=== PATIENT | female | born 1935 | race Caucasian/White ===

== ENCOUNTER 2017-01-02 20:10 | Emergency (ER) | payer MEDICARE ==
[2017-01-02] MEDS ORDERED: NS 0.9% 1000 ML* 1,000 ML IV ONE (20:47)
[2017-01-02 20:53] LABS: Hematocrit 38 % (35-47); Hemoglobin 12.4 g/dl (12.0-16.0); Mean Corpuscular HGB Conc 33 g/dl (31-36); Mean Corpuscular Hemoglobin 28 pg (27-31); Mean Corpuscular Volume 86 fL (80-97); Mean Platelet Volume 7 um3 (7.4-10.4); Red Blood Count 4.38 10^6/ul (4.0-5.4); Red Cell Distribution Width 15 % (10.5-15); White Blood Count 5.4 10^3/ul (3.5-10.8)
[2017-01-02 21:04] LABS: BUN/Creatinine Ratio 16.2 (8-20); Calcium 9.5 mg/dL (8.6-10.3); EGFR African American 97.1 (>60); EGFR Non-African American 75.5 (>60); Potassium 3.6 mmol/L (3.5-5.0)
--- NOTE | 2017-01-02 21:40 | RAD ---
Indication: Altered mental status. Weakness, dizziness, chills. History of seizure disorder. Comparison: August 04, 2014 CT. Technique: Noncontrast CT vertex of skull through foramen magnum. Report: Mild to moderate prominence of the cerebral sulci and mild prominence of the cerebellar fissures. Unremarkable ventricles and basal cisterns. 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 Negative for mulligan matter white matter obscuration, intra or extra-axial hemorrhage, or mass effect. Unremarkable orbital contents. Indolent thickening of the inner table of the frontal bone noted. No suspicious calvarial or skull base lesions evident. Clear visualized paranasal sinuses and mastoid air spaces. Unremarkable scalp. IMPRESSION: 1. No acute intracranial process evident. 2. Mild involutional change and stigmata of chronic small vessel ischemic disease.
[2017-01-02 22:51] LABS: Urine Bacteria 1+ (Absent); Urine Bilirubin Negative (Negative); Urine Glucose Negative (Negative); Urine Nitrite Positive (Negative)
[2017-01-02] MEDS ORDERED: Cephalexin CAP* 500 MG PO ONE (23:00)
--- NOTE | 2017-01-02 23:07 | ED ---
I, Oh,Therese, scribed for Wally Ha MD on 01/02/17 at 2101 . Dizziness - HPI Summary HPI Summary: This 81 y/o female presents to ED via private transport for intermittent dizziness today around 1800 PM. Pt reports that she experienced lightheaded dizziness when she woke up from her daily nap at 1800 PM and ambulated to get some water. Lightheadedness resolved by the time she got her water, but her son became concerned about the episode and urged her to visit ED. She reports that she consumed taco and sticky buns for dinner after her episode of dizziness. PMHx includes mitral valve prolapse, DVT, and vertebral fracture. - History Of Current Complaint Chief Complaint: EDWeakness Stated Complaint: AMS/WEAKNESS Time Seen by Provider: 01/02/17 20:35 Hx Obtained From: Patient, Medical Records Timing: Intermittent Episode Lasting - seconds Severity Initially: Mild Severity Currently: None Character: Lightheaded Aggravating Factor(s): Nothing Alleviating Factor(s): Other - Spontaneous resolution Associated Signs And Symptoms: Positive: Negative - Allergies/Home Medications Allergies/Adverse Reactions: Allergies Allergy/AdvReac Type Severity Reaction Status Date / Time Alendronate [From Fosamax] Allergy Severe Headache Verified 01/20/16 17:21 Iodinated Contrast Media Allergy Severe Hives Verified 01/20/16 17:21 [IV CONTRAST DYE] PMH/Surg Hx/FS Hx/Imm Hx Endocrine/Hematology History: Denies: Hx Anticoagulant Therapy, Hx Diabetes, Hx Thyroid Disease Cardiovascular History: Denies: Hx Hypertension, Hx Pacemaker/ICD Respiratory History: Denies: Hx Asthma, Hx Chronic Obstructive Pulmonary Disease (COPD) GI History: Denies: Hx Ulcer History: Denies: Hx Dialysis, Hx Renal Disease Musculoskeletal History: Reports: Hx Osteoporosis Sensory History: Reports: Hx Contacts or Glasses Denies: Hx Hearing Aid Opthamlomology History: Reports: Hx Contacts or Glasses Neurological History: Reports: Hx Seizures Psychiatric History: Denies: Hx Panic Disorder - Surgical History Surgery Procedure, Year, and Place: R knee replacement 05/25/2012; hysterectomy; blood clot L leg;. right shoulder repair w/ screw - Immunization History Date of Tetanus Vaccine: unknown Date of Influenza Vaccine: 2014 Infectious Disease History: No Infectious Disease History: Reports: Hx Shingles Denies: Hx Clostridium Difficile, Hx Hepatitis, Hx Human Immunodeficiency Virus (HIV), Hx of Known/Suspected MRSA, Hx Tuberculosis, Traveled Outside the [place] in Last 30 Days - Family History Known Family History: Positive: Cardiac Disease - Social History Alcohol Use: None Substance Use Type: Reports: None Smoking Status (MU): Former Smoker Type: Cigarettes Length of Time of Smoking/Using Tobacco: quit smoking at 17 years old Review of Systems Negative: Fever Neurological: Other - positive for intermittent lightheaded dizziness Negative: Anxious, Depressed All Other Systems Reviewed And Are Negative: Yes Physical Exam Triage Information Reviewed: Yes Vital Signs On Initial Exam: Initial Vitals Temp Pulse Resp BP Pulse Ox 98.5 F 86 20 151/68 98 01/02/17 20:16 01/02/17 20:16 01/02/17 20:16 01/02/17 20:16 01/02/17 20:16 Vital Signs Reviewed: Yes Appearance: Positive: Well-Appearing, No Pain Distress Skin: Positive: Warm, Dry Head/Face: Positive: Normal Head/Face Inspection Eyes: Positive: JORDAN ENT: Positive: Pharynx normal Neck: Positive: Supple, Nontender. Negative: Other: - carotid bruit Respiratory/Lung Sounds: Positive: Clear to Auscultation, Breath Sounds Present Cardiovascular: Positive: RRR, Pulses are Symmetrical in both Upper and Lower Extremities Abdomen Description: Positive: Nontender, Soft Musculoskeletal: Positive: Strength/ROM Intact Neurological: Positive: Sensory/Motor Intact, Alert, Oriented to Person Place, Time Psychiatric: Positive: Affect/Mood Appropriate AVPU Assessment: Alert - Marc Coma Scale Coma Scale Total: 15 Diagnostics - Vital Signs Vital Signs Temp Pulse Resp BP Pulse Ox 01/02/17 20:16 98.5 F 86 20 151/68 98 - Laboratory Lab Results: Lab Results 01/02/17 01/02/17 01/02/17 Range/Units 20:35 20:35 22:25 WBC 5.4 (3.5-10.8) 10^3/ul RBC 4.38 (4.0-5.4) 10^6/ul Hgb 12.4 (12.0-16.0) g/dl Hct 38 (35-47) % MCV 86 (80-97) fL MCH 28 (27-31) pg MCHC 33 (31-36) g/dl RDW 15 (10.5-15) % Plt Count 223 (150-450) 10^3/ul MPV 7 L (7.4-10.4) um3 Sodium 136 (133-145) mmol/L Potassium 3.6 (3.5-5.0) mmol/L Chloride 102 (101-111) mmol/L Carbon Dioxide 30 (22-32) mmol/L Anion Gap 4 (2-11) mmol/L BUN 12 (6-24) mg/dL Creatinine 0.74 (0.51-0.95) mg/dL Est GFR ( Amer) 97.1 (>60) Est GFR (Non-Af Amer) 75.5 (>60) BUN/Creatinine Ratio 16.2 (8-20) Glucose 103 H (70-100) mg/dL Calcium 9.5 (8.6-10.3) mg/dL Urine Color Yellow Urine Appearance Clear Urine pH 6.0 (5-9) Ur Specific [place] 1.005 L (1.010-1.030) Urine Protein Negative (Negative) Urine Ketones Negative (Negative) Urine Blood 1+ H (Negative) Urine Nitrate Positive H (Negative) Urine Bilirubin Negative (Negative) Urine Urobilinogen Negative (Negative) Ur Leukocyte Esterase 1+ H (Negative) Urine WBC (Auto) Absent (Absent) Urine RBC (Auto) Trace(0-2/hpf) (Absent) Ur Squamous Epith Cells Present H (Absent) Urine Bacteria 1+ H (Absent) Urine Glucose Negative (Negative) Result Diagrams: 01/02/17 20:35 01/02/17 20:35 Lab Statement: Any lab studies that have been ordered have been reviewed, and results considered in the medical decision making process. - CT Brain CT Interpretation: No Acute Changes - 1. No acute intracranial process evident. 2. Mild involutional change and stigmata of chronic small vessel ischemic disease. CT Interpretation Completed By: Radiologist Re-Evaluation - Re-Evaluation First Eval Re-Evaluation Time: 23:01 Change: Improved Comment: in room to update pt on bloodwork, UA, and imaging results. Plan of care involving discharge is discussed, and pt is agreeable. Dizzy Course/Dx - Diagnoses Differential Diagnosis/HQI/PQRI: Metabolic Abnormality, Myocardial Infarction, Other - UTI. Provider Diagnoses: Urinary tract infection Discharge - Discharge Plan Condition: Improved Disposition: HOME Prescriptions: Cephalexin CAP* [Keflex 500 CAP*] 500 mg PO BID #14 cap Patient Education Materials: Urinary Tract Infection in Women (ED) Referrals: Jean Gaxiola MD [Primary Care Provider] - 3 Days The documentation as recorded by the Ollie warner Soohyun accurately reflects the service I personally performed and the decisions made by , Wally Ha MD.
[2017-01-03 00:44] VITALS: BP 153/51
--- NOTE | 2017-01-06 07:21 | PN ---
Progress Note - Progress Note Note: Patient discharged on Keflex which is sensitive on cultures, therefore no further action needed.
== END 2017-01-03 00:44 | disposition home or self-care (01) ==
LOC: ED 20:10
DX: N39.0 Urinary tract infection, site not specified (principal); R42 Dizziness and giddiness
CPT/HCPCS: 36415; 70450; 80048; 81003; 81015; 85027; 87077; 87086; 87186; 96361; 99283; A9270-GY

== ENCOUNTER 2017-03-22 18:15 | Emergency (ER) | payer MEDICARE ==
--- NOTE | 2017-03-22 20:11 | RAD ---
INDICATION: Head injury. COMPARISON: Comparison is made with a prior CT of the brain from January 02, 2017. TECHNIQUE: Contiguous axial sections of the brain were obtained from the skull base to the vertex without contrast. FINDINGS: The ventricles, cisterns and sulci are enlarged consistent with diffuse atrophy. There are small areas of decreased density in the subcortical and periventricular white matter suggestive of mild chronic small vessel ischemic changes. There is no evidence for hemorrhage. No significant focal osseous abnormality is seen. The visualized portion of the paranasal sinuses and mastoid air cells appear clear. IMPRESSION: NO EVIDENCE FOR ACUTE INTRACRANIAL ABNORMALITY.
--- NOTE | 2017-03-22 20:14 | RAD ---
INDICATION: Left elbow injury. TECHNIQUE: 4 views of the left elbow were obtained. FINDINGS: The bones are osteopenic and in normal alignment. No joint effusion or fracture is seen. Joint spaces appear maintained. IMPRESSION: NO EVIDENCE FOR FRACTURE.
--- NOTE | 2017-03-22 20:16 | RAD ---
INDICATION: Trauma, back pain. COMPARISON: Comparison is made with a prior study from January 20, 2016. TECHNIQUE: 5 views of the lumbar spine were obtained including lateral, oblique, AP and a coned-down lateral view of the lumbar sacral junction. FINDINGS: There is a mild lumbar scoliosis convex toward the right side. The vertebra are otherwise in normal alignment. There is a mild compression fracture of the inferior endplate of the L4 vertebral body which is unchanged. No acute fracture is seen. There is mild diffuse degenerative disc disease. IMPRESSION: MILD COMPRESSION FRACTURE OF THE L4 VERTEBRAL BODY, UNCHANGED.
--- NOTE | 2017-03-22 20:18 | RAD ---
INDICATION: Left knee injury. TECHNIQUE: 4 views of the left knee were obtained. FINDINGS: The bones are osteopenic and in normal alignment. No joint effusion or fracture is seen. There is mild to moderate osteoarthritic change in the patellofemoral and lateral compartments. IMPRESSION: NO EVIDENCE FOR FRACTURE.
--- NOTE | 2017-03-22 21:04 | ED ---
Adult Trauma - HPI Summary HPI Summary: Patient is an 81yo F who arrives to ED after a fall. She states she hit her head on the grass as well as her side and knee. She was ambulatory at the scene and denies LOC. She states she is otherwise healthy. Denies memory loss , confusion, N/V. She has osteoporosis and is concerned for a fracture. Fall occurred approximately 2 hours ago, and she does not recall exactly how she landed. She admits to no pain immediately, but slowly began to feel some pain after several minutes and decided to come to the ED. 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 ?: No Mechanism of Injury: Fall Ambulatory at the Scene: Yes Loss of Consciousness: no loss of consciousness Force: Low Restraints: None Onset/Duration: Started Hours Ago Onset of Pain: Immediate Onset Severity: Mild Current Severity: Mild Pain Intensity: 4 Pain Scale Used: 0-10 Numeric Location: Head, Extremities Character: Dull Alleviating Factor(s): Nothing Associated Signs & Symptoms: Positive: Negative - Allergy/Home Medications Allergies/Adverse Reactions: Allergies Allergy/AdvReac Type Severity Reaction Status Date / Time Alendronate [From Fosamax] Allergy Severe Headache Verified 01/20/16 17:21 Iodinated Contrast Media Allergy Severe Hives Verified 01/20/16 17:21 [IV CONTRAST DYE] PMH/Surg Hx/FS Hx/Imm Hx Previously Healthy: Yes Endocrine/Hematology History: Denies: Hx Anticoagulant Therapy, Hx Diabetes, Hx Thyroid Disease Cardiovascular History: Denies: Hx Hypertension, Hx Pacemaker/ICD Respiratory History: Denies: Hx Asthma, Hx Chronic Obstructive Pulmonary Disease (COPD) GI History: Denies: Hx Ulcer History: Denies: Hx Dialysis, Hx Renal Disease Musculoskeletal History: Reports: Hx Osteoporosis Sensory History: Reports: Hx Contacts or Glasses Denies: Hx Hearing Aid Opthamlomology History: Reports: Hx Contacts or Glasses Neurological History: Reports: Hx Seizures Psychiatric History: Denies: Hx Panic Disorder - Surgical History Surgery Procedure, Year, and Place: R knee replacement 05/25/2012; hysterectomy; blood clot L leg;. right shoulder repair w/ screw - Immunization History Date of Tetanus Vaccine: unknown Date of Influenza Vaccine: 2015 Hx Pertussis Vaccination: No Immunizations Up to Date: No Infectious Disease History: Reports: Hx Shingles Denies: Hx Clostridium Difficile, Hx Hepatitis, Hx Human Immunodeficiency Virus (HIV), Hx of Known/Suspected MRSA, Hx Tuberculosis, Traveled Outside the [place] in Last 30 Days - Family History Known Family History: Positive: None, Cardiac Disease - Social History Occupation: Unemployed Lives: With Family Alcohol Use: None Hx Substance Use: No Substance Use Type: Reports: None Hx Tobacco Use: No Smoking Status (MU): Former Smoker Type: Cigarettes Length of Time of Smoking/Using Tobacco: quit smoking at 17 years old Review of Systems Constitutional: Negative Eyes: Negative Cardiovascular: Negative Respiratory: Negative Positive: no symptoms reported, see HPI Positive: Arthralgia - left knee, left elbow Psychological: Normal All Other Systems Reviewed And Are Negative: Yes Physical Exam Triage Information Reviewed: Yes Vital Signs On Initial Exam: Initial Vitals Temp Pulse Resp BP Pulse Ox 98.2 F 78 18 150/59 98 03/22/17 18:18 03/22/17 18:18 03/22/17 18:18 03/22/17 18:18 03/22/17 18:18 Vital Signs Reviewed: Yes Appearance: Positive: Well-Appearing, No Pain Distress, Well-Nourished Skin: Positive: Warm, Skin Color Reflects Adequate Perfusion Head/Face: Positive: Normal Head/Face Inspection Eyes: Positive: Normal Respiratory/Lung Sounds: Positive: Clear to Auscultation, Breath Sounds Present Cardiovascular: Positive: Normal, RRR, Pulses are Symmetrical in both Upper and Lower Extremities Musculoskeletal: Positive: Strength/ROM Intact, Pain @ - left elbow, left knee pain Neurological: Positive: Sensory/Motor Intact, Speech Normal Psychiatric: Positive: Normal Diagnostics - Vital Signs Vital Signs Temp Pulse Resp BP Pulse Ox 03/22/17 18:18 98.2 F 78 18 150/59 98 - Laboratory Lab Statement: Any lab studies that have been ordered have been reviewed, and results considered in the medical decision making process. Adult Trauma Course/Dx - Course Course Of Treatment: Patient was evaluated for trauma pain from a fall. Brain CT, lumbar spine, Left elbow, and left knee all OK for fracture. After given the results, patient mentions she has a slight pain in her right side over the rib area. Provider explained will need to complete a rib xray to determine if it is fractured. at that time she declined the rib xray as she knew it would not change the course of treatment. she prefers to take ibuprofen and icy hot for pain relief and will follow up with PCP. - Diagnoses Differential Diagnosis/HQI/PQRI: Positive: Contusion(s), Fracture, Hematoma(s), Sprain Provider Diagnoses: Fall Discharge - Discharge Plan Condition: Stable Disposition: HOME Patient Education Materials: Contusion in Adults (ED) Referrals: Jean Gaxiola MD [Primary Care Provider] - Additional Instructions: Follow up with your PCP. Icy hot, heating pads and ibuprofen 600mg three times daily as needed for discomfort Nothing found on xray. as discussed, cannot rule out rib fracture
[2017-03-22 21:41] VITALS: BP 164/61
== END 2017-03-22 21:40 | disposition home or self-care (01) ==
LOC: ED 18:15
DX: M25.562 Pain in left knee (principal); M25.522 Pain in left elbow; R07.81 Pleurodynia; Z87.891 Personal history of nicotine dependence; M81.0 Age-related osteoporosis without current pathological fracture; M48.56XA Collapsed vertebra, not elsewhere classified, lumbar region, initial encounter for fracture
CPT/HCPCS: 70450; 72110; 99282

== ENCOUNTER 2017-04-17 11:55 | Emergency (ER) | payer MEDICARE ==
[2017-04-17 12:32] VITALS: BP 150/63
--- NOTE | 2017-04-17 14:00 | UC ---
Skin Complaint HPI - HPI Summary HPI Summary: PATIENT IS AN OTHERWISE HEALTHY 81YO F WHO PRESENTS TO WITH CC OF TICK BITE TO THE INNER RIGHT CALF. SHE STATES THE TICK COULD HAVE BEEN ON FOR A MAX OF 24 HOURS SHE DID NOT SEE IT YESTERDAY. HER SON ATTEMPTED TO DISLODGE THE TICK AT HOME WITH TWEEZERS, BUT A SMALL BLACK PIECE HAS REMAINED. SHE DENIES MUSCLE ACHES, JOINT PAINS, SNYDER OR RASH. TICK WAS NOT ENGORGED AND MOST LIKELY DEER TICK. SHE HAS HAD TICK BITES IN THE PAST AND WAS ABLE TO DISLODGE WITHOUT PROBLEMS. SHE WOULD LIKE THE REMAINING PIECE OF THE TICK REMOVED AND IS ASKING IF SHE NEEDS PROPHYLAXIS FOR LYME. - History of Current Complaint Chief Complaint: UCSkin Time Seen by Provider: 04/17/17 13:09 Stated Complaint: TICK BITE Hx Obtained From: Patient Hx Last Menstrual Period: post menopausal ?: No Onset/Duration: Sudden Onset Skin Exposure Onset/Duration: Hours Ago Timing: Constant Onset Severity: Mild Current Severity: Mild Pain Intensity: 0 Pain Scale Used: 0-10 Numeric Location: Other - LEG - RIGHT Aggravating: Nothing Alleviating: Nothing Associated Signs & Symptoms: Positive: Negative Related History: Possible Reaction to: Insect - Allergy/Home Medications Allergies/Adverse Reactions: Allergies Allergy/AdvReac Type Severity Reaction Status Date / Time Alendronate [From Fosamax] Allergy Severe Headache Verified 01/20/16 17:21 Iodinated Contrast Media Allergy Severe Hives Verified 01/20/16 17:21 [IV CONTRAST DYE] Review of Systems Constitutional: Negative Skin: Other - SMALL ERYTHEMATOUS .5CM DIAMETER RAISED LESION SURROUNDING SMALL BLACK DOT OVER RIGHT INNER LOWER LEG Respiratory: Negative Cardiovascular: Negative Motor: Negative Neurovascular: Negative Musculoskeletal: Negative Neurological: Negative All Other Systems Reviewed And Are Negative: Yes PMH/Surg Hx/FS Hx/Imm Hx Previously Healthy: Yes Endocrine History Of: Denies: Diabetes, Thyroid Disease Cardiovascular History Of: Denies: Cardiac Disorders, Hypertension, Pacemaker/ICD Respiratory History Of: Denies: COPD, Asthma GI/ History Of: Denies: Ulcer, Renal Disease Neurological History Of: Reports: Seizures Other History Of: Negative For: Anticoagulant Therapy - Surgical History Surgical History: Yes Surgery Procedure, Year, and Place: R knee replacement 05/25/2012; hysterectomy; blood clot L leg;. right shoulder repair w/ screw - Family History Known Family History: Positive: None, Cardiac Disease - Social History Occupation: Retired Lives: With Family Alcohol Use: None Substance Use Type: None Smoking Status (MU): Former Smoker Type: Cigarettes Length of Time of Smoking/Using Tobacco: quit smoking at 17 years old Have You Smoked in the Last Year: No - Immunization History Most Recent Influenza Vaccination: 2012 Most Recent Tetanus Shot: >5 yrs Most Recent Pneumonia Vaccination: never Physical Exam Triage Information Reviewed: Yes Appearance: Well-Appearing, No Pain Distress, Well-Nourished Vital Signs: Initial Vital Signs Temp 97.4 F 04/17/17 12:24 Pulse 81 04/17/17 12:24 Resp 16 04/17/17 12:24 BP 150/63 04/17/17 12:24 Pulse Ox 98 04/17/17 12:24 Vital Signs Reviewed: Yes Eye Exam: Normal Dental Exam: Normal Neck exam: Normal Neck: Positive: Supple, Nontender, No Lymphadenopathy Respiratory: Positive: Chest non-tender Cardiovascular Exam: Normal Musculoskeletal Exam: Normal Musculoskeletal: Positive: Strength Intact Neurological Exam: Normal Neurological: Positive: Alert Psychological: Positive: Normal Response To Family, Age Appropriate Behavior Skin Exam: Normal Skin: Positive: significant lesion(s) - RIGHT LOWER EXTREMITY Course/Dx - Course Course Of Treatment: TICK BITE FROM THIS MORNING. SMALL ERYTHEMATOUS .5CM DIAMETER RAISED LESION SURROUNDING SMALL BLACK DOT OVER RIGHT INNER LOWER LEG. PATIENT WOULD LIKE TO HAVE REMAINING TICK REMOVED. 20 GAUGE NEEDLE USED TO REMOVE SMALL PIECE OF REMAINING TICK IN LEG. BANDAID APPLIED. D/T TIMING, NO EM RASH AND NEGATIVE FOR SYMPTOMS, WILL NOT TREAT PROPHYLACTICALLY FOR LYME. PATIENT IS OK WITH PLAN AND OK FOR DISCHARGE. - Differential Diagnoses - Skin Complaint Differential Diagnoses: Cellulitis, Contact Dermatitis, Local Allergic Reaction , Other - LYME - Diagnoses Provider Diagnoses: TICK BITE Discharge - Discharge Plan Condition: Stable Disposition: HOME Patient Education Materials: Tick Bite (ED) Referrals: Jean Gaxiola MD [Primary Care Provider] - Additional Instructions: Follow up with PCP If you develop any fevers, worsening muscle aches or joint pains, come back to .
== END 2017-04-17 13:37 | disposition home or self-care (01) ==
LOC: UCEAST 11:55
DX: S80.861A Insect bite (nonvenomous), right lower leg, initial encounter (principal); W57.XXXA Bitten or stung by nonvenomous insect and other nonvenomous arthropods, initial encounter; N95.9 Unspecified menopausal and perimenopausal disorder; Z91.041 Radiographic dye allergy status; R56.9 Unspecified convulsions; Z96.651 Presence of right artificial knee joint; Z87.891 Personal history of nicotine dependence
CPT/HCPCS: 99211; G0463

== ENCOUNTER 2017-04-18 14:56 | Emergency (ER) | payer MEDICARE ==
[2017-04-18 17:23] VITALS: BP 163/67
--- NOTE | 2017-04-18 17:39 | UC ---
HPI Wound/Suture Re-check - HPI Summary HPI Summary: 81 Y/O female seen for tick bite / removal on 04/17/17. Presents today to have leg rechecked. States feels better, no complaint. - History Of Current Complaint Chief Complaint: VALORIEkin Stated Complaint: TICK BITE Time Seen by Provider: 04/18/17 17:19 Hx Obtained From: Patient Onset/Duration: Sudden Onset, Lasting Days Severity: Mild Pain Intensity: 0 Pain Scale Used: 0-10 Numeric - Allergies/Home Medications Allergies/Adverse Reactions: Allergies Allergy/AdvReac Type Severity Reaction Status Date / Time Alendronate [From Fosamax] Allergy Severe Headache Verified 04/18/17 17:23 Iodinated Contrast Media Allergy Severe Hives Verified 04/18/17 17:23 [IV CONTRAST DYE] Home Medications: Home Medications Acetaminophen [Acetaminophen Extra Stren] 2 tab PO Q6HR PRN 04/18/17 [History Confirmed 04/18/17] PMH/Surg Hx/FS Hx/Imm Hx Endocrine History Of: Denies: Diabetes, Thyroid Disease Cardiovascular History Of: Denies: Cardiac Disorders, Hypertension, Pacemaker/ICD Respiratory History Of: Denies: COPD, Asthma GI/ History Of: Denies: Ulcer, Renal Disease Neurological History Of: Reports: Seizures Other History Of: Negative For: Anticoagulant Therapy - Surgical History Surgical History: Yes Surgery Procedure, Year, and Place: R knee replacement 05/25/2012; hysterectomy; blood clot L leg;. right shoulder repair w/ screw - Family History Known Family History: Positive: None, Cardiac Disease - Social History Alcohol Use: None Substance Use Type: None Smoking Status (MU): Former Smoker Type: Cigarettes Length of Time of Smoking/Using Tobacco: quit smoking at 17 years old Have You Smoked in the Last Year: No - Immunization History Most Recent Influenza Vaccination: 2012 Most Recent Tetanus Shot: >5 yrs Most Recent Pneumonia Vaccination: never Review of Systems Constitutional: Negative Skin: Other - Healing area on RLE - site of tick removal Eyes: Negative ENT: Negative Respiratory: Negative Cardiovascular: Negative Gastrointestinal: Negative Genitourinary: Negative Motor: Negative Neurovascular: Negative Musculoskeletal: Negative Neurological: Negative Psychological: Negative All Other Systems Reviewed And Are Negative: Yes Physical Exam Triage Information Reviewed: Yes Appearance: No Pain Distress Vital Signs: Initial Vital Signs Temp 97.1 F 04/18/17 17:20 Pulse 79 04/18/17 17:20 Resp 16 04/18/17 17:20 BP 163/67 04/18/17 17:20 Pulse Ox 97 04/18/17 17:20 Vital Signs Reviewed: Yes Eye Exam: Normal ENT Exam: Normal Respiratory Exam: Normal Respiratory: Positive: Lungs clear Cardiovascular Exam: Normal Cardiovascular: Positive: RRR Abdominal Exam: Normal Abdomen Description: Positive: Nontender, Soft Bowel Sounds: Positive: Present Musculoskeletal Exam: Normal Neurological Exam: Normal Psychological Exam: Normal Skin Exam: Other Skin: Positive: Other - RLE small scabbed over area where tick was removed. Course/Dx - Differential Dx - Laceration/Wound Differential Diagnoses: Healing Wound Provider Diagnoses: Healing wound Discharge - Discharge Plan Condition: Stable Disposition: HOME Patient Education Materials: Tick Bite (ED) Additional Instructions: Your leg is healing well. May return to ED if you have signs of infection, you may return to walk in. Signs of infection include increased redness, increased pain, or drainage.
== END 2017-04-18 17:47 | disposition home or self-care (01) ==
LOC: UCEAST 14:56
DX: Z09 Encounter for follow-up examination after completed treatment for conditions other than malignant neoplasm (principal); Z87.891 Personal history of nicotine dependence
CPT/HCPCS: 99211; G0463

== ENCOUNTER 2017-05-13 19:27 | Emergency (ER) | payer MEDICARE ==
[2017-05-13] MEDS ORDERED: NS 0.9% 1000 ML* 1,000 ML IV ONE (21:24)
[2017-05-13 21:59] LABS: Hematocrit 40 % (35-47); Mean Corpuscular HGB Conc 33 g/dl (31-36); Mean Corpuscular Hemoglobin 28 pg (27-31); Mean Corpuscular Volume 85 fL (80-97); Mean Platelet Volume 7 um3 (7.4-10.4); Red Cell Distribution Width 16 % (10.5-15); White Blood Count 7.4 10^3/ul (3.5-10.8)
--- NOTE | 2017-05-13 22:09 | ED ---
Yohannes Stewart Benjamin, scribed for Beck Acosta MD on 05/13/17 at 2148 . Complex/Multi-Sys Presentation - HPI Summary HPI Summary: 81yo female / weakness and fatigue for 2 weeks. Pt was seen by PCP recently and had her water pills dosage increased. Pt is scheduled to see her PCP again on June 04. - History Of Current Complaint Chief Complaint: EDWeakness Time Seen by Provider: 05/13/17 21:21 Hx Obtained From: Patient, Family/New Grad Rn - Onset/Duration: Gradual Onset, Lasting Weeks - 2 weeks, Still Present Timing: Constant Severity Currently: Mild Severity Initially: Mild - Allergies/Home Medications Allergies/Adverse Reactions: Allergies Allergy/AdvReac Type Severity Reaction Status Date / Time Alendronate [From Fosamax] Allergy Severe Headache Verified 05/13/17 19:33 Iodinated Contrast Media Allergy Severe Hives Verified 05/13/17 19:33 [IV CONTRAST DYE] PMH/Surg Hx/FS Hx/Imm Hx Endocrine/Hematology History: Denies: Hx Anticoagulant Therapy, Hx Diabetes, Hx Thyroid Disease Cardiovascular History: Denies: Hx Hypertension, Hx Pacemaker/ICD Respiratory History: Denies: Hx Asthma, Hx Chronic Obstructive Pulmonary Disease (COPD) GI History: Denies: Hx Ulcer History: Denies: Hx Dialysis, Hx Renal Disease Musculoskeletal History: Reports: Hx Osteoporosis Sensory History: Reports: Hx Contacts or Glasses Denies: Hx Hearing Aid Opthamlomology History: Reports: Hx Contacts or Glasses Neurological History: Reports: Hx Seizures Psychiatric History: Denies: Hx Panic Disorder - Surgical History Surgery Procedure, Year, and Place: R knee replacement 05/25/2012; hysterectomy; blood clot L leg;. right shoulder repair w/ screw - Immunization History Date of Tetanus Vaccine: unknown Date of Influenza Vaccine: 2014 Infectious Disease History: No Infectious Disease History: Reports: Hx Shingles - treatment given Denies: Hx Clostridium Difficile, Hx Hepatitis, Hx Human Immunodeficiency Virus (HIV), Hx of Known/Suspected MRSA, Hx Tuberculosis, Traveled Outside the [place] in Last 30 Days - Family History Known Family History: Positive: None, Cardiac Disease - Social History Occupation: Retired Lives: With Family Alcohol Use: None Hx Substance Use: No Substance Use Type: Reports: None Hx Tobacco Use: No Smoking Status (MU): Former Smoker Type: Cigarettes Length of Time of Smoking/Using Tobacco: quit smoking at 17 years old Have You Smoked in the Last Year: No Review of Systems Constitutional: Negative Eyes: Negative ENT: Negative Cardiovascular: Negative Respiratory: Negative Gastrointestinal: Negative Genitourinary: Negative Musculoskeletal: Negative Skin: Negative Positive: Weakness Psychological: Normal All Other Systems Reviewed And Are Negative: Yes Physical Exam Triage Information Reviewed: Yes Vital Signs On Initial Exam: Initial Vitals Temp Pulse Resp BP Pulse Ox 97.8 F 86 18 147/56 97 05/13/17 19:33 05/13/17 19:33 05/13/17 19:33 05/13/17 19:33 05/13/17 19:33 Vital Signs Reviewed: Yes Appearance: Positive: Well-Appearing, No Pain Distress Skin: Positive: Warm Head/Face: Positive: Normal Head/Face Inspection Eyes: Positive: JORDAN ENT: Positive: Hearing grossly normal Respiratory/Lung Sounds: Positive: Clear to Auscultation, Breath Sounds Present Cardiovascular: Positive: Normal, RRR Abdomen Description: Positive: Nontender, Soft Bowel Sounds: Positive: Present Musculoskeletal: Positive: Strength/ROM Intact Neurological: Positive: Alert, Oriented to Person Place, Time - Marc Coma Scale Coma Scale Total: 15 Diagnostics - Vital Signs Vital Signs Temp Pulse Resp BP Pulse Ox 05/13/17 21:23 82 95 05/13/17 21:21 140/50 05/13/17 19:33 97.8 F 86 18 147/56 97 - Laboratory Lab Results: Lab Results 05/13/17 Range/Units 21:45 WBC 7.4 (3.5-10.8) 10^3/ul RBC 4.70 (4.0-5.4) 10^6/ul Hgb 13.0 (12.0-16.0) g/dl Hct 40 (35-47) % MCV 85 (80-97) fL MCH 28 (27-31) pg MCHC 33 (31-36) g/dl RDW 16 H (10.5-15) % Plt Count 199 (150-450) 10^3/ul MPV 7 L (7.4-10.4) um3 Neut % (Auto) 65.4 (38-83) % Lymph % (Auto) 22.5 L (25-47) % [place] % (Auto) 11.1 H (1-9) % Eos % (Auto) 0.5 (0-6) % Baso % (Auto) 0.5 (0-2) % Absolute Neuts (auto) 4.8 (1.5-7.7) 10^3/ul Absolute Lymphs (auto) 1.7 (1.0-4.8) 10^3/ul Absolute Monos (auto) 0.8 (0-0.8) 10^3/ul Absolute Eos (auto) 0 (0-0.6) 10^3/ul Absolute Basos (auto) 0 (0-0.2) 10^3/ul Absolute Nucleated RBC 0.01 10^3/ul Nucleated RBC % 0.1 Result Diagrams: 05/13/17 21:45 05/13/17 21:45 Lab Statement: Any lab studies that have been ordered have been reviewed, and results considered in the medical decision making process. - EKG 193. Cardiac Rate: NL - 76bpm EKG Rhythm: Sinus Rhythm Re-Evaluation - Re-Evaluation First Eval Comment: results d/w pt Complex Multi-Symp Course/Dx - Diagnoses Provider Diagnoses: Weakness Discharge - Discharge Plan Condition: Stable Disposition: HOME Patient Education Materials: Weakness (ED) Referrals: Jean Gaxiola MD [Primary Care Provider] - The documentation as recorded by the Yohannes warner Benjamin accurately reflects the service I personally performed and the decisions made by , Beck Acosta MD.
[2017-05-13 22:15] LABS: Albumin 4.4 g/dL (3.2-5.2); BUN/Creatinine Ratio 17.3 (8-20); Calcium 9.5 mg/dL (8.6-10.3); EGFR African American 87.5 (>60); Globulin 2.7 g/dL (2-4); Potassium 3.5 mmol/L (3.5-5.0); Total Bilirubin 0.3 mg/dL (0.2-1.0); Total Protein 7.1 g/dL (6.4-8.9)
[2017-05-13 22:17] LABS: Troponin I 0.01 ng/mL (<0.04)
[2017-05-13 22:46] LABS: TSH (Thyroid Stimulating Horm) 0.57 mcIU/mL (0.34-5.60)
[2017-05-13 23:18] VITALS: BP 113/50
== END 2017-05-13 23:22 | disposition home or self-care (01) ==
LOC: ED 19:27
DX: R53.1 Weakness (principal); Z87.891 Personal history of nicotine dependence; M81.0 Age-related osteoporosis without current pathological fracture
CPT/HCPCS: 36415; 80053; 83605; 83735; 84443; 84484; 85025; 93005; 96360; 99283

== ENCOUNTER 2017-08-12 15:27 | Inpatient (IN) | payer MEDICARE ==
[2017-08-12] MEDS ORDERED: NS 0.9% 1000 ML* 1,000 ML IV ONE ×2 (16:32→19:47)
[2017-08-12 17:01] LABS: Hematocrit 48 % (35-47); Hemoglobin 15.7 g/dl (12.0-16.0); Mean Corpuscular HGB Conc 33 g/dl (31-36); Mean Corpuscular Hemoglobin 31 pg (27-31); Mean Corpuscular Volume 95 fL (80-97); Mean Platelet Volume 8 um3 (7.4-10.4); Red Blood Count 5.02 10^6/ul (4.0-5.4); Red Cell Distribution Width 19 % (10.5-15); White Blood Count 12.5 10^3/ul (3.5-10.8)
--- NOTE | 2017-08-12 17:03 | RAD ---
INDICATION: Altered mental status COMPARISON: Chest x-ray June 16, 2014 TECHNIQUE: An AP portable view obtained at 1700 hours is submitted. FINDINGS: Bones/Soft Tissues: There are no acute bony findings. Cardiomediastinal: The cardiomediastinal silhouette is normal. Lungs: There are no infiltrates. Pleura: There are no pleural effusions. Other: None IMPRESSION: NO ACTIVE DISEASE.
[2017-08-12 17:14] LABS: Ammonia 43 mol/L (16-53)
[2017-08-12 17:16] LABS: ALT 58 U/L (7-52); AST 52 U/L (13-39); Albumin 3.8 g/dL (3.2-5.2); Alkaline Phosphatase 113 U/L (34-104); Anion Gap 12 mmol/L (2-11); BUN/Creatinine Ratio 35.2 (8-20); Blood Urea Nitrogen 25 mg/dL (6-24); C Reactive Protein 149.82 mg/L (< 5.00); CO2 Carbon Dioxide 27 mmol/L (22-32); Calcium 10.5 mg/dL (8.6-10.3); Chloride 99 mmol/L (101-111); Creatine Kinase 40 U/L (10-223); EGFR African American 101.9 (>60); EGFR Non-African American 79.2 (>60); Globulin 4.1 g/dL (2-4); Glucose 133 mg/dL (70-100); Lipase 36 U/L (11.0-82.0); Magnesium 2.3 mg/dL (1.9-2.7); Potassium 4.2 mmol/L (3.5-5.0); Sodium 138 mmol/L (133-145); Total Protein 7.9 g/dL (6.4-8.9)
[2017-08-12 17:18] LABS: Acetaminophen < 15 mcg/mL; Alcohol < 10 mg/dL (<10)
[2017-08-12 17:19] LABS: B Type Natriuretic Peptide 31 pg/mL
[2017-08-12 17:28] LABS: TSH (Thyroid Stimulating Horm) 1.48 mcIU/mL (0.34-5.60)
[2017-08-12 17:31] LABS: Urine Bacteria 1+ (Absent); Urine Bilirubin Negative (Negative); Urine Glucose Negative (Negative); Urine Nitrite Negative (Negative)
--- NOTE | 2017-08-12 17:42 | RAD ---
INDICATION: Recent hiatal hernia surgery. Not eating. COMPARISON: None TECHNIQUE: Noncontrast axial source images were obtained from the hemidiaphragms to the symphysis pubis. This examination was ordered using a renal stone protocol which is performed without oral or intravenous contrast and therefore has inherent limitations when used to evaluate other intra-abdominal or intrapelvic pathology. Consider conventional contrast enhanced imaging if clinically indicated. Lung bases: There is a small (1 cm), nodular focus in the right lung base seen on the cephalad most image. This represents an indeterminate finding. There is a small left-sided effusion. Liver: The liver is normal in size. Noncontrast imaging shows no evidence of a hepatic mass or ductal dilatation. Gallbladder: There are no calcified gallstones. There is no evidence of wall thickening or pericholecystic fluid.. Spleen: The spleen is normal in size. The noncontrast CT appearance is normal. Pancreas: The pancreas is mildly atrophic. Adrenal glands: No masses are identified. Kidneys/Bladder: There is no evidence of nephrolithiasis or CT evidence of hydronephrosis. Noncontrast imaging shows no evidence of a renal mass. The bladder is unremarkable.. Adenopathy: There is no evidence of intraperitoneal or retroperitoneal adenopathy. Evaluation is limited without oral contrast. Fluid collections: There are no free or localized fluid collections. Vessels: There are atherosclerotic changes of the aorta and iliac vessels. There is no focal aneurysm. The IVC appears normal Pelvic organs: There is hysterectomy. There is no adnexal mass GI tract: Evaluation the upper GI tract is very limited without oral contrast. There is a localized fluid collection at the level of diaphragmatic hiatus and there is an adjacent air-containing viscus which is consistent with a hiatal hernia. There is opacification of the colon presumably related to oral contrast administered at an outside institution. There are extensive diverticula of the sigmoid colon without CT evidence of acute diverticulitis. There is no obstruction. The appendix is visualized and appears normal. Soft tissues: No soft tissue abnormalities of the extraperitoneal abdomen or pelvis are identified. Osseous structures: There are no acute osseous findings. IMPRESSION: 1. Indeterminant focus of nodularity in the right lung base. This is imaged only on the cephalad most image. Suggest correlation with prior images available. 2. Small left-sided effusion. 3. Hysterectomy 4. Localized fluid collection at the level of diaphragmatic hiatus perhaps related to recent intervention is indicated in the history. Suggest follow-up and/or correlation with external images. Apparent small hiatal hernia. 5. Residual contrast within large bowel presumably from prior external imaging.
--- NOTE | 2017-08-12 17:44 | RAD ---
INDICATION: Altered mental status COMPARISON: CT brain March 22, 2017 TECHNIQUE: Noncontrast axial source images were acquired from the skull base to the vertex. FINDINGS: Ventricles/sulci: There is cortical atrophy with compensatory dilatation of the CSF spaces. 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 There is additional underlying periventricular and subcortical white matter change consistent with chronic microvascular ischemia. Intracranial hemorrhage:None. Extra-axial spaces: There are no abnormal extra axial fluid collections or evidence of extra-axial mass. Calvarium: There is no calvarial fracture or other calvarial abnormality. Scalp: There is no evidence of scalp or extracalvarial soft tissue abnormality. Paranasal sinuses/mastoid: The paranasal sinuses and mastoid air cells are clear. Other: None. 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 NO ACUTE FINDINGS
--- NOTE | 2017-08-12 21:00 | RAD ---
INDICATION: Check for mid esophageal NG tube placement COMPARISON: Chest x-ray August 12, 2017 TECHNIQUE: An AP portable view obtained at 20.4 hours is submitted. FINDINGS: Bones/Soft Tissues: There are no acute bony findings. There is placement of an NG tube 2 cm above the ana. The nasogastric tube is placed to allow for demonstration of small amount of contrast in this patient with recent hiatal hernia surgery. Cardiomediastinal: The cardiomediastinal silhouette is normal. Lungs: There are no infiltrates. Pleura: There are no pleural effusions. Other: None IMPRESSION: NG TUBE POSITION DESCRIBED. LUNGS CLEAR.
--- NOTE | 2017-08-12 21:50 | RAD ---
The patient returned for additional imaging at the level of the GE junction. An additional 30 axial images were obtained with coronal and sagittal reconstructions. The additional images were acquired following the administration of a small amount of contrast introduced via a nasogastric tube positioned in the mid esophagus. The contrast appears confined to the esophagus and is present in a small hiatal hernia at the level of the GE junction. There is also contrast within the stomach. There is no evidence of extravasation. There is a small localized fluid collection at the level of the GE junction to the right of the esophagus measuring 3.5 x 1.8 cm in transverse dimensions and 3.7 cm in cephalocaudal dimension.
--- NOTE | 2017-08-12 22:26 | ED ---
Jayda Stewart Kyle, scribed for Feliberto Enrique MD on 08/12/17 at 2018 . Neurological HPI - HPI Summary HPI Summary: This is an 81 year old female presenting to the ED w/ c/o generalized weakness with altered mental status. Her son gives the history as she is unable to speak for the past week. He reports this has been gradually worsening over the past few weeks. He reports that he has been hand feeding her, but today she was not responding very well to eating or talking. This morning was the first time her son was unable to get her to eat anything. Last night she had 6 bites of different foods. Son reports no bowel movements for the past three days. Son state that it has been 3 weeks since she has been able to get up on her own. He called the PCP who referred her to the ED for further evaluation. - History of Current Complaint Chief Complaint: EDWeakness Stated Complaint: STROKE-LIKE SYMPTOMS Time Seen by Provider: 08/12/17 16:07 Hx Obtained From: Family/Java Programming Professor - Son Hx From Patient Unobtainable Due To: Other - Unable to speak Hx Last Menstrual Period: post menopausal Onset/Duration: Gradual Onset Timing: Constant Onset Severity: Moderate Current Severity: Moderate Pain Intensity: 0 Pain Scale Used: 0-10 Numeric - Allergy/Home Medications Allergies/Adverse Reactions: Allergies Allergy/AdvReac Type Severity Reaction Status Date / Time Alendronate [From Fosamax] Allergy Severe Headache Verified 08/12/17 16:00 Iodinated Contrast Media Allergy Severe Hives Verified 08/12/17 16:00 [IV CONTRAST DYE] Home Medications: Home Medications Aspirin EC Low Dose* [Ecotrin EC Low Dose 81 MG*] 81 mg PO DAILY 08/12/17 [ History Confirmed 08/12/17] Clotrimazole TASHI* [Mycelex TASHI*] 10 mg PO .FIVE TIMES DAILY 08/12/17 [ History Confirmed 08/12/17] Fluconazole [Diflucan 40 mg/ml Susp] 40 mg PO DAILY 08/12/17 [History Confirmed 08/12/17] Ibuprofen TAB* [Advil TAB*] 200 mg PO Q6H PRN 08/12/17 [History Confirmed ] Latanoprost 0.005%* [Xalatan 0.005%*] 1 drop BOTH EYES BEDTIME 08/12/17 [ History Confirmed 08/12/17] Multivitamins/Minerals TAB* [Theragran/minerals TAB*] 1 tab PO DAILY 08/12/17 [ History Confirmed 08/12/17] [place]-3 Fatty Acids (Nf) [Fish Oil (NF)] 1,000 mg PO DAILY 08/12/17 [History Confirmed 08/12/17] Ondansetron ODT TAB* [Zofran 4 MG Odt TAB*] 4 mg PO Q4HR PRN 08/12/17 [History Confirmed 08/12/17] Pantoprazole TAB (NF) [Protonix TAB (NF)] 40 mg PO DAILY 08/12/17 [History Confirmed 08/12/17] Phenobarbital 16.2 mg PO TID 08/12/17 [History Confirmed 08/12/17] Phenytoin CAP(*) [Dilantin CAP(*)] 200 mg PO EVERY OTHER DAY 08/12/17 [History Confirmed 08/12/17] Phenytoin CAP(*) [Dilantin CAP(*)] 300 mg PO EVERY OTHER DAY 08/12/17 [History Confirmed 08/12/17] Prochlorperazine TAB* [Compazine Tab*] 10 mg PO Q6H PRN 08/12/17 [History Confirmed 08/12/17] PMH/Surg Hx/FS Hx/Imm Hx Endocrine/Hematology History: Denies: Hx Anticoagulant Therapy, Hx Diabetes, Hx Thyroid Disease Cardiovascular History: Denies: Hx Hypertension, Hx Pacemaker/ICD Respiratory History: Denies: Hx Asthma, Hx Chronic Obstructive Pulmonary Disease (COPD) GI History: Denies: Hx Ulcer History: Denies: Hx Dialysis, Hx Renal Disease Musculoskeletal History: Reports: Hx Osteoporosis Sensory History: Reports: Hx Contacts or Glasses Denies: Hx Hearing Aid Opthamlomology History: Reports: Hx Contacts or Glasses Neurological History: Reports: Hx Seizures Psychiatric History: Denies: Hx Panic Disorder - Surgical History Surgery Procedure, Year, and Place: R knee replacement 05/25/2012; hysterectomy; blood clot L leg;. right shoulder repair w/ screw - Immunization History Date of Tetanus Vaccine: unknown Date of Influenza Vaccine: 2014 Infectious Disease History: No Infectious Disease History: Reports: Hx Shingles - treatment given Denies: Hx Clostridium Difficile, Hx Hepatitis, Hx Human Immunodeficiency Virus (HIV), Hx of Known/Suspected MRSA, Hx Tuberculosis, Traveled Outside the [place] in Last 30 Days - Family History Known Family History: Positive: Cardiac Disease - Social History Alcohol Use: None Hx Substance Use: No Substance Use Type: Reports: None Hx Tobacco Use: No Smoking Status (MU): Former Smoker Type: Cigarettes Length of Time of Smoking/Using Tobacco: quit smoking at 17 years old Have You Smoked in the Last Year: No Review of Systems Negative: Fever Positive: Weakness All Other Systems Reviewed And Are Negative: No - Comments Additional Review of Systems Comments: Patient unable to speak and therefore unable to contribute to the history. Physical Exam - Summary Physical Exam Summary: General: Ill-appearing. Skin: warm, color reflects adequate perfusion, dry Head: normal Eyes: EOMI, JORDAN ENT: completely dry oral mucosa. Neck: supple, nontender Respiratory: CTA, breath sounds present Cardiovascular: Tachycardic Abdomen: soft, nontender with hypoactive bowel sounds. Bowel: present Musculoskeletal: not moving any extremities. Neurological: GCS 9. Eyes open spontaneously. Not moving extremities. Not speaking. Psychological: Unable to access secondary to muteness Triage Information Reviewed: Yes Vital Signs On Initial Exam: Initial Vitals Temp Pulse Resp BP Pulse Ox 96.0 F 102 12 144/73 97 08/12/17 15:30 08/12/17 15:30 08/12/17 15:30 08/12/17 15:30 08/12/17 15:30 Vital Signs Reviewed: Yes - Marc Coma Scale Best Eye Response: 4 - Spontaneous Best Motor Response: 4 - Withdraws Best Verbal Response: 1 - None Coma Scale Total: 11 Diagnostics - Vital Signs Vital Signs Temp Pulse Resp BP Pulse Ox 08/12/17 15:54 98.3 F 106 16 154/79 98 08/12/17 15:30 96.0 F 102 12 144/73 97 - Laboratory Lab Results: Lab Results 08/12/17 08/12/17 08/12/17 Range/Units 16:15 16:15 16:15 WBC (3.5-10.8) 10^3/ul RBC (4.0-5.4) 10^6/ul Hgb (12.0-16.0) g/dl Hct (35-47) % MCV (80-97) fL MCH (27-31) pg MCHC (31-36) g/dl RDW (10.5-15) % Plt Count (150-450) 10^3/ul MPV (7.4-10.4) um3 Neut % (Auto) (38-83) % Lymph % (Auto) (25-47) % [place] % (Auto) (1-9) % Eos % (Auto) (0-6) % Baso % (Auto) (0-2) % Absolute Neuts (auto) (1.5-7.7) 10^3/ul Absolute Lymphs (auto) (1.0-4.8) 10^3/ul Absolute Monos (auto) (0-0.8) 10^3/ul Absolute Eos (auto) (0-0.6) 10^3/ul Absolute Basos (auto) (0-0.2) 10^3/ul Absolute Nucleated RBC 10^3/ul Nucleated RBC % INR (Anticoag Therapy) 1.25 H (0.89-1.11) APTT 35.0 (26.0-36.3) seconds Sodium 138 (133-145) mmol/L Potassium 4.2 (3.5-5.0) mmol/L Chloride 99 L (101-111) mmol/L Carbon Dioxide 27 (22-32) mmol/L Anion Gap 12 H (2-11) mmol/L BUN 25 H (6-24) mg/dL Creatinine 0.71 (0.51-0.95) mg/dL Est GFR ( Amer) 101.9 (>60) Est GFR (Non-Af Amer) 79.2 (>60) BUN/Creatinine Ratio 35.2 H (8-20) Glucose 133 H (70-100) mg/dL Lactic Acid (0.5-2.0) mmol/L Calcium 10.5 H (8.6-10.3) mg/dL Magnesium 2.3 (1.9-2.7) mg/dL Total Bilirubin 0.60 (0.2-1.0) mg/dL AST 52 H (13-39) U/L ALT 58 H (7-52) U/L Alkaline Phosphatase 113 H (34-104) U/L Ammonia 43 (16-53) mol/L Total Creatine Kinase 40 (10-223) U/L CK-MB (CK-2) 1.8 (0.6-6.3) ng/mL Troponin I 0.00 (<0.04) ng/mL C-Reactive Protein 149.82 H (< 5.00) mg/L B-Natriuretic Peptide 31 ( - 100) pg/mL Total Protein 7.9 (6.4-8.9) g/dL Albumin 3.8 (3.2-5.2) g/dL Globulin 4.1 H (2-4) g/dL Albumin/Globulin Ratio 0.9 L (1-3) Lipase 36 (11.0-82.0) U/L TSH 1.48 (0.34-5.60) mcIU/mL Urine Color Urine Appearance Urine pH (5-9) Ur Specific [place] (1.010-1.030) Urine Protein (Negative) Urine Ketones (Negative) Urine Blood (Negative) Urine Nitrate (Negative) Urine Bilirubin (Negative) Urine Urobilinogen (Negative) Ur Leukocyte Esterase (Negative) Urine WBC (Auto) (Absent) Urine RBC (Auto) (Absent) Ur Squamous Epith Cells (Absent) Urine Bacteria (Absent) Urine Glucose (Negative) Acetaminophen < 15 mcg/mL Serum Alcohol < 10 (<10) mg/dL 08/12/17 08/12/17 08/12/17 Range/Units 16:15 16:15 17:00 WBC 12.5 H (3.5-10.8) 10^3/ul RBC 5.02 (4.0-5.4) 10^6/ul Hgb 15.7 (12.0-16.0) g/dl Hct 48 H (35-47) % MCV 95 (80-97) fL MCH 31 (27-31) pg MCHC 33 (31-36) g/dl RDW 19 H (10.5-15) % Plt Count 332 (150-450) 10^3/ul MPV 8 (7.4-10.4) um3 Neut % (Auto) 69.0 (38-83) % Lymph % (Auto) 21.4 L (25-47) % [place] % (Auto) 9.0 (1-9) % Eos % (Auto) 0.1 (0-6) % Baso % (Auto) 0.5 (0-2) % Absolute Neuts (auto) 8.6 H (1.5-7.7) 10^3/ul Absolute Lymphs (auto) 2.7 (1.0-4.8) 10^3/ul Absolute Monos (auto) 1.1 H (0-0.8) 10^3/ul Absolute Eos (auto) 0 (0-0.6) 10^3/ul Absolute Basos (auto) 0.1 (0-0.2) 10^3/ul Absolute Nucleated RBC 0.01 10^3/ul Nucleated RBC % 0.1 INR (Anticoag Therapy) (0.89-1.11) APTT (26.0-36.3) seconds Sodium (133-145) mmol/L Potassium (3.5-5.0) mmol/L Chloride (101-111) mmol/L Carbon Dioxide (22-32) mmol/L Anion Gap (2-11) mmol/L BUN (6-24) mg/dL Creatinine (0.51-0.95) mg/dL Est GFR ( Amer) (>60) Est GFR (Non-Af Amer) (>60) BUN/Creatinine Ratio (8-20) Glucose (70-100) mg/dL Lactic Acid 1.7 (0.5-2.0) mmol/L Calcium (8.6-10.3) mg/dL Magnesium (1.9-2.7) mg/dL Total Bilirubin (0.2-1.0) mg/dL AST (13-39) U/L ALT (7-52) U/L Alkaline Phosphatase (34-104) U/L Ammonia (16-53) mol/L Total Creatine Kinase (10-223) U/L CK-MB (CK-2) (0.6-6.3) ng/mL Troponin I (<0.04) ng/mL C-Reactive Protein (< 5.00) mg/L B-Natriuretic Peptide ( - 100) pg/mL Total Protein (6.4-8.9) g/dL Albumin (3.2-5.2) g/dL Globulin (2-4) g/dL Albumin/Globulin Ratio (1-3) Lipase (11.0-82.0) U/L TSH (0.34-5.60) mcIU/mL Urine Color Evelin Urine Appearance Cloudy Urine pH 6.0 (5-9) Ur Specific [place] 1.014 (1.010-1.030) Urine Protein 1+(30 mg/dl) H (Negative) Urine Ketones Negative (Negative) Urine Blood 1+ H (Negative) Urine Nitrate Negative (Negative) Urine Bilirubin Negative (Negative) Urine Urobilinogen Negative (Negative) Ur Leukocyte Esterase 2+ H (Negative) Urine WBC (Auto) 1+(6-10/hpf) H (Absent) Urine RBC (Auto) Absent (Absent) Ur Squamous Epith Cells Present H (Absent) Urine Bacteria 1+ H (Absent) Urine Glucose Negative (Negative) Acetaminophen mcg/mL Serum Alcohol (<10) mg/dL Result Diagrams: 08/12/17 16:15 08/12/17 16:15 Lab Statement: Any lab studies that have been ordered have been reviewed, and results considered in the medical decision making process. - Radiology CXR Xray Interpretation: No Acute Changes - No active disease Radiology Interpretation Completed By: Radiologist CXR - Post NG Tube Xray Interpretation: Positive (See Comments) - NG Tube is 2 cm above the ana. the NG tube is placed to allow for demonstration of small amount of contrast in this patient with recent hiatal hernia surgery. Radiology Interpretation Completed By: Radiologist - CT ABD/Pelvis CT Interpretation: Positive (See Comments) - 1. Indeterminant focus of nodularity in the right lung base. This is imaged only on the cephalad most image. Suggest correlation with prior images available. 2. Small left-sided efusion. 3. Hysterectomy. 4. Localized collection at the level of diaphragmatic hiatus perhaps related to recent intervention is idicated in the history. Suggest follow up and/or correlation with external images. Apparent small hiatal hernia. 5. Residual contrast within large bowel presumably from prior external imaging. CT Interpretation Completed By: Radiologist Brain CT Interpretation: No Acute Changes - Brain atrophy with evidence prior vascular insult. No acute findings. CT Interpretation Completed By: Radiologist - EKG 1625 Cardiac Rate: Tachycardia - 103 EKG Rhythm: Sinus Tachycardia ST Segment: Non-Specific - t changes in the lateral leads. Ectopy: None Course/Dx - Course Course Of Treatment: DISCUSSED WITH SURGERY, DR WHEELER. PATIENT HAD A CT WITH PO CONTRAST TO ENSURE NO ESOPHAGEAL LEAK. ADMIT HOSPITALIST. - Diagnoses Provider Diagnoses: Weakness, Dehydration, Altered mental state - Physician Notifications Discussed Care Of Patient With: Beck Wheeler - Surgery Time Discussed With Above Provider: 19:50 Instructed by Provider To: Other - Recommends placing an NG tube and checking a CT of the lower esophagus. - Critical Care Time Critical Care Time: 30-74 min Discharge - Discharge Plan Condition: Fair Disposition: ADMITTED TO [facility] Referrals: Jean Gaxiola MD [Primary Care Provider] - The documentation as recorded by the Jayda warner Kyle accurately reflects the service I personally performed and the decisions made by me, Feliberto Enrique MD.
--- NOTE | 2017-08-12 23:42 | HP ---
H&P (Free Text) History and Physical: PCP: Dodie Gaxiola MD Date/Time: 08/12/2017 2330 CC: non-verbal x1 week, not eating HPI: Mrs Varela is an 81YO female who underwent a hiatal hernia repair at [facility] ~1 month ago and was discharged to [facility] where her family then signed her out ~2 weeks ago due to dissatisfaction with care. Mrs Varela is unable to participate with the history and no family are present to assist. Per ED staff and EMS report family stated she has been declining since leaving [facility] including become non-verbal 1 week ago and supposedly was unable to eat this AM. Family called her PCP who advised ED evaluation and EMS was called. There is no report of pain, chest pain, abdominal pain, F/C, N/V/D, or other. PMedHx seizure disorder CVA 2001 atrial septal aneurysm patent foramen ovale MVP osteoporosis Ambulatory Orders Calcium Carbonate-Cholecalcife [Caltrate 600+D] 1 tab PO DAILY 04/29/13 Aspirin EC Low Dose* [Ecotrin EC Low Dose 81 MG*] 81 mg PO DAILY 08/12/17 Clotrimazole TASHI* [Mycelex TASHI*] 10 mg PO .FIVE TIMES DAILY 08/12/17 Fluconazole [Diflucan 40 mg/ml Susp] 40 mg PO DAILY 08/12/17 Ibuprofen TAB* [Advil TAB*] 200 mg PO Q6H PRN 08/12/17 Latanoprost 0.005%* [Xalatan 0.005%*] 1 drop BOTH EYES BEDTIME 08/12/17 Multivitamins/Minerals TAB* [Theragran/minerals TAB*] 1 tab PO DAILY 08/12/17 [place]-3 Fatty Acids (Nf) [Fish Oil (NF)] 1,000 mg PO DAILY 08/12/17 Ondansetron ODT TAB* [Zofran 4 MG Odt TAB*] 4 mg PO Q4HR PRN 08/12/17 Pantoprazole TAB (NF) [Protonix TAB (NF)] 40 mg PO DAILY 08/12/17 Phenobarbital 16.2 mg PO TID 08/12/17 Phenytoin CAP(*) [Dilantin CAP(*)] 200 mg PO EVERY OTHER DAY 08/12/17 Phenytoin CAP(*) [Dilantin CAP(*)] 300 mg PO EVERY OTHER DAY 08/12/17 Prochlorperazine TAB* [Compazine Tab*] 10 mg PO Q6H PRN 08/12/17 Allergies Alendronate [From Fosamax] Allergy (Severe, Verified 08/12/17 16:00) Headache Iodinated Contrast Media [IV CONTRAST DYE] Allergy (Severe, Verified 08/12/17 16 :00) Hives PSurgHx hiatal hernia repair [facility] 06/2017, records requested hysterectomy ORIF R shoulder R TKA SocHx: no tobacco, alcohol, or recreational drug HX; residing currently with family; full code status, needs revisiting FamHx: Mother: multiple CVAs; Father: passed of CAD in his 60s; Brother: seizure disorder ROS: as above, otherwise reviewed and all were negative vitals: Vital Signs Temp 36.8 C 08/12/17 15:54 Pulse 95 08/12/17 23:30 Resp 20 08/12/17 21:00 BP 137/67 08/12/17 23:30 Pulse Ox 99 08/12/17 23:30 Intake & Output 08/12/17 08/12/17 08/13/17 11:59 23:59 11:59 Intake Total 1000 Output Total 1200 Balance -200 Weight 57.606 kg Intake: IV Fluids 1000 Output: [place] 1200 Constitutional: NAD, normally developed, well-nourished elderly white female HEENM: atraumatic; sclera/conjunctiva: non-icteric/clear; blephara: sunken; fundi: no papilledema OU; hearing: unable to assess; oropharynx: mucosa tacky, clear Neck: soft tissue: no nuchal rigidity; thyroid: normal Pulmonary: clear to auscultation bilaterally, good aeration, no accessory muscle use CV: RR/RR, normal S1S2, no carotid bruit, no jugular venous distention, 2+ B DP/ PT, no edema Abdominal: soft, non-distended, non-tender, no rebound/guarding/rigidity, normoactive bowel sounds, no hepatosplenomegaly or masses, no costovertebral angle tenderness Musculoskeletal: general: grossly intact; gait: currently non-ambulatory ? baseline Integumental: normal appearance and texture of exposed skin Psychiatric orientation: AA, unable to assess orientation affect: calm mood: acquiescent eye contact: poor content: absent responses: looks and focuses briefly with loud voice insight: poor to absent Testing: Lab Results 08/12/17 08/12/17 08/12/17 Range/Units 16:15 16:15 16:15 WBC (3.5-10.8) 10^3/ul RBC (4.0-5.4) 10^6/ul Hgb (12.0-16.0) g/dl Hct (35-47) % MCV (80-97) fL MCH (27-31) pg MCHC (31-36) g/dl RDW (10.5-15) % Plt Count (150-450) 10^3/ul MPV (7.4-10.4) um3 Neut % (Auto) (38-83) % Lymph % (Auto) (25-47) % [place] % (Auto) (1-9) % Eos % (Auto) (0-6) % Baso % (Auto) (0-2) % Absolute Neuts (auto) (1.5-7.7) 10^3/ul Absolute Lymphs (auto) (1.0-4.8) 10^3/ul Absolute Monos (auto) (0-0.8) 10^3/ul Absolute Eos (auto) (0-0.6) 10^3/ul Absolute Basos (auto) (0-0.2) 10^3/ul Absolute Nucleated RBC 10^3/ul Nucleated RBC % INR (Anticoag Therapy) 1.25 H (0.89-1.11) APTT 35.0 (26.0-36.3) seconds Sodium 138 (133-145) mmol/L Potassium 4.2 (3.5-5.0) mmol/L Chloride 99 L (101-111) mmol/L Carbon Dioxide 27 (22-32) mmol/L Anion Gap 12 H (2-11) mmol/L BUN 25 H (6-24) mg/dL Creatinine 0.71 (0.51-0.95) mg/dL Est GFR ( Amer) 101.9 (>60) Est GFR (Non-Af Amer) 79.2 (>60) BUN/Creatinine Ratio 35.2 H (8-20) Glucose 133 H (70-100) mg/dL Lactic Acid (0.5-2.0) mmol/L Calcium 10.5 H (8.6-10.3) mg/dL Magnesium 2.3 (1.9-2.7) mg/dL Total Bilirubin 0.60 (0.2-1.0) mg/dL AST 52 H (13-39) U/L ALT 58 H (7-52) U/L Alkaline Phosphatase 113 H (34-104) U/L Ammonia 43 (16-53) mol/L Total Creatine Kinase 40 (10-223) U/L CK-MB (CK-2) 1.8 (0.6-6.3) ng/mL Troponin I 0.00 (<0.04) ng/mL C-Reactive Protein 149.82 H (< 5.00) mg/L B-Natriuretic Peptide 31 ( - 100) pg/mL Total Protein 7.9 (6.4-8.9) g/dL Albumin 3.8 (3.2-5.2) g/dL Globulin 4.1 H (2-4) g/dL Albumin/Globulin Ratio 0.9 L (1-3) Lipase 36 (11.0-82.0) U/L TSH 1.48 (0.34-5.60) mcIU/mL Urine Color Urine Appearance Urine pH (5-9) Ur Specific [place] (1.010-1.030) Urine Protein (Negative) Urine Ketones (Negative) Urine Blood (Negative) Urine Nitrate (Negative) Urine Bilirubin (Negative) Urine Urobilinogen (Negative) Ur Leukocyte Esterase (Negative) Urine WBC (Auto) (Absent) Urine RBC (Auto) (Absent) Ur Squamous Epith Cells (Absent) Urine Bacteria (Absent) Urine Glucose (Negative) Acetaminophen < 15 mcg/mL Serum Alcohol < 10 (<10) mg/dL 08/12/17 08/12/17 08/12/17 Range/Units 16:15 16:15 17:00 WBC 12.5 H (3.5-10.8) 10^3/ul RBC 5.02 (4.0-5.4) 10^6/ul Hgb 15.7 (12.0-16.0) g/dl Hct 48 H (35-47) % MCV 95 (80-97) fL MCH 31 (27-31) pg MCHC 33 (31-36) g/dl RDW 19 H (10.5-15) % Plt Count 332 (150-450) 10^3/ul MPV 8 (7.4-10.4) um3 Neut % (Auto) 69.0 (38-83) % Lymph % (Auto) 21.4 L (25-47) % [place] % (Auto) 9.0 (1-9) % Eos % (Auto) 0.1 (0-6) % Baso % (Auto) 0.5 (0-2) % Absolute Neuts (auto) 8.6 H (1.5-7.7) 10^3/ul Absolute Lymphs (auto) 2.7 (1.0-4.8) 10^3/ul Absolute Monos (auto) 1.1 H (0-0.8) 10^3/ul Absolute Eos (auto) 0 (0-0.6) 10^3/ul Absolute Basos (auto) 0.1 (0-0.2) 10^3/ul Absolute Nucleated RBC 0.01 10^3/ul Nucleated RBC % 0.1 INR (Anticoag Therapy) (0.89-1.11) APTT (26.0-36.3) seconds Sodium (133-145) mmol/L Potassium (3.5-5.0) mmol/L Chloride (101-111) mmol/L Carbon Dioxide (22-32) mmol/L Anion Gap (2-11) mmol/L BUN (6-24) mg/dL Creatinine (0.51-0.95) mg/dL Est GFR ( Amer) (>60) Est GFR (Non-Af Amer) (>60) BUN/Creatinine Ratio (8-20) Glucose (70-100) mg/dL Lactic Acid 1.7 (0.5-2.0) mmol/L Calcium (8.6-10.3) mg/dL Magnesium (1.9-2.7) mg/dL Total Bilirubin (0.2-1.0) mg/dL AST (13-39) U/L ALT (7-52) U/L Alkaline Phosphatase (34-104) U/L Ammonia (16-53) mol/L Total Creatine Kinase (10-223) U/L CK-MB (CK-2) (0.6-6.3) ng/mL Troponin I (<0.04) ng/mL C-Reactive Protein (< 5.00) mg/L B-Natriuretic Peptide ( - 100) pg/mL Total Protein (6.4-8.9) g/dL Albumin (3.2-5.2) g/dL Globulin (2-4) g/dL Albumin/Globulin Ratio (1-3) Lipase (11.0-82.0) U/L TSH (0.34-5.60) mcIU/mL Urine Color Evelin Urine Appearance Cloudy Urine pH 6.0 (5-9) Ur Specific [place] 1.014 (1.010-1.030) Urine Protein 1+(30 mg/dl) H (Negative) Urine Ketones Negative (Negative) Urine Blood 1+ H (Negative) Urine Nitrate Negative (Negative) Urine Bilirubin Negative (Negative) Urine Urobilinogen Negative (Negative) Ur Leukocyte Esterase 2+ H (Negative) Urine WBC (Auto) 1+(6-10/hpf) H (Absent) Urine RBC (Auto) Absent (Absent) Ur Squamous Epith Cells Present H (Absent) Urine Bacteria 1+ H (Absent) Urine Glucose Negative (Negative) Acetaminophen mcg/mL Serum Alcohol (<10) mg/dL ECG, personally reviewed: sinus tachycardia rate 103, no ectopy, no ischemia CXR, personally reviewed: IMPRESSION: NO ACTIVE DISEASE. CT brain WO, personally reviewed: IMPRESSION: ATROPHY WITH EVIDENCE OF PRIOR VASCULAR INSULT. NO ACUTE FINDINGS CT abd/pel WO, personally reviewed: IMPRESSION: 1. Indeterminant focus of nodularity in the right lung base. This is imaged only on the cephalad most image. Suggest correlation with prior images available. 2. Small left-sided effusion. 3. Hysterectomy 4. Localized fluid collection at the level of diaphragmatic hiatus perhaps related to recent intervention is indicated in the history. Suggest follow-up and/or correlation with external images. Apparent small hiatal hernia. 5. Residual contrast within large bowel presumably from prior external imaging. CT abd W, limited, personally reviewed: The patient returned for additional imaging at the level of the GE junction. An additional 30 axial images were obtained with coronal and sagittal reconstructions. The additional images were acquired following the administration of a small amount of contrast introduced via a nasogastric tube positioned in the mid esophagus. The contrast appears confined to the esophagus and is present in a small hiatal hernia at the level of the GE junction. There is also contrast within the stomach. There is no evidence of extravasation. There is a small localized fluid collection at the level of the GE junction to the right of the esophagus measuring 3.5 x 1.8 cm in transverse dimensions and 3.7 cm in cephalocaudal dimension. Impression: 81F presenting via EMS with gradual failure to thrive over ~2 weeks after being removed from [facility] due to dissatisfaction with care found to be lethargic ? 2nd UTI & mod/severe dehydration DIAGNOSIS & PLAN Primary sepsis (HR >90, AMS, & leukocytosis) 2nd UTI & mod/severe dehydration : IVFs : ceftriaxone IV : blood & urine CXs : healthcare social worker consult for assistance with discharge planning, unable to be managed at home : supportive care GE level fluid collection : likely post-op seroma, but cannot r/o abscess at this time : Chery Weldon MD surgery consulted by Hernesto Enrique MD ED; will evaluate in AM failure to thrive : 2nd above : keep NPO until bedside swallow may be performed GERD : IV famotidine BID seizure disorder : doubt status, but will obtain EEG in AM to further eval for completeness : convert oral phenobarb & phenytoin doses to IV & continue, check levels : seizure precautions Secondary CVA 2002 : change aspirin to rectal until able to take PO Admission Rational: inpatient for sepsis 2nd UTI vs doubt jeff-esophageal abscess vs doubt status epilepticus DVTp: heparin SQ & SCDs Code Status: full, needs revisiting HCP: sonCornelio
[2017-08-13] MEDS ORDERED: Ondansetron INJ* 2 MG/ML VIAL IV PRN (00:37)
[2017-08-13] MEDS ORDERED: Acetaminophen SUPP* 650 MG SUPP PR PRN (00:38)
[2017-08-13] MEDS: cefTRIAXone VIAL(*) 1,000 MG in NS 0.9% 50 ML* 50 ML IVPB SCH (01:37)
[2017-08-13 01:51] LABS: Phenytoin 37.6 mcg/mL (10-20)
[2017-08-13] MEDS ORDERED: PHENobarbital SODIUM(*) 65 MG/ML VIAL IV SCH (09:00)
[2017-08-13] MEDS: Aspirin SUPP* 300 MG PR SCH (10:40)
[2017-08-13] MEDS: Famotidine IV* 10 MG/ML 2 ML (20 mg) IV SLOW PU SCH ×2 (10:44→21:39)
[2017-08-13 11:04] LABS: Albumin 3.2 g/dL (3.2-5.2); BUN/Creatinine Ratio 40.4 (8-20); Calcium 9.2 mg/dL (8.6-10.3); Direct Bilirubin 0.2 mg/dL (0.03-0.18); EGFR Non-African American 127.5 (>60); Globulin 3.5 g/dL (2-4); Indirect Bilirubin 0.3 mg/dL (0.3-1.0); Potassium 3.9 mmol/L (3.5-5.0); Total Bilirubin 0.5 mg/dL (0.2-1.0); Total Protein 6.7 g/dL (6.4-8.9)
--- NOTE | 2017-08-13 12:19 | PN ---
Subjective Date of Service: 08/13/17 Interval History: This is an 81 yo female with prior CVA and sz d/o that has been stable for multiple decades who presents with AMS and FTT. Patient was complaining of difficulty swallowing and vomiting several months ago and a large hiatal hernia was identified. Patient underwent surgery at [facility] to fix the defect ~1 month ago , but at the time of surgery she had been taking liquids only for several weeks. She was discharged from [facility] the day following surgery but had to return ~2 weeks later with recurrent vomiting and was hospitalized ~5d and treated for thrush per patient's son. Since returning home over the last week or so he had been making small gains with her taking soft foods per surgery recommendations, but starting 08/12 she was stopped taking anything oral for her son including her medications. She lives with her son who acts as her primary director critical care said he has been in touch with her PCP through her post-op stay as well. Her antiepileptic medications were reduced ~1 week ago after serum levels were elevated in the setting of persistent lethargy. Overnight, there has been no change since admission. Patient is essentially not responsive and unable to participate in a swallow evaluation at this time. She was started on Ceftriaxone for suspected UTI and IV fluids. She has been afebrile and HR has improved. Objective Active Medications: Acetaminophen (Tylenol Supp*) 650 mg CO Q6H PRN PRN Reason: FEVER/PAIN Aspirin (Aspirin Supp*) 300 mg CO DAILY [facility] Last Admin: 08/13/17 10:40 Dose: 300 mg Famotidine (Pepcid Iv*) 20 mg IV SLOW PU BID [facility] Last Admin: 08/13/17 10:44 Dose: 20 mg Heparin Sodium (Porcine) (Heparin Vial(*)) 5,000 units SUBCUT Q8HR [facility] Sodium Chloride (Ns 0.9% 1000 Ml*) 1,000 mls @ 85 mls/hr IV PER RATE [facility] Ceftriaxone Sodium 1,000 mg/ (Sodium Chloride) 50 mls @ 200 mls/hr IVPB Q24H [facility] Last Admin: 08/13/17 01:37 Dose: 200 mls/hr Latanoprost (Xalatan 0.005%*) 1 drop BOTH EYES BEDTIME [facility] Ondansetron HCl (Zofran Inj*) 4 mg IV Q6H PRN PRN Reason: NAUSEA Vital Signs 08/13/17 08/13/17 08/13/17 00:00 01:16 03:41 Temperature 97.6 F 97.8 F Pulse Rate 97 100 98 Respiratory 15 18 Rate Blood Pressure 157/65 145/83 145/73 (mmHg) O2 Sat by Pulse 95 98 100 Oximetry Oxygen Devices in Use Now: None Appearance: This is an elderly female who does not respond in any meaningful way to verbal and light tactile stimuli. Ears/Nose/Mouth/Throat: - - MM dry Respiratory: Symmetrical Chest Expansion and Respiratory Effort, Clear to Auscultation Cardiovascular: NL Sounds; No Murmurs; No JVD, RRR Abdominal: - - soft, bowel sounds present Extremities: - - some LLE edema noted Skin: No Rash or Ulcers Result Diagrams: 08/12/17 16:15 08/13/17 10:31 Additional Lab and Data: . Assess/Plan/Problems-Billing Assessment: This is an 81 yo female with h/o prior CVA and sz d/o who presents with AMS after progressive decline over the last several months complicated by recent hiatal hernia repair. - Patient Problems (1) Encephalopathy Comment: Likely acute toxic encephalopathy secondary to sepsis and complicated by elevated phenobarbital and phenytoin levels No change overnight No acute findings on CT of the brain EEG pending to eval for status epilepticus which is unlikely given supratherapeutic antiepileptics (2) Sepsis Comment: qSOFA = 2 at admission with AMS and tachypnea but remains normotensive Likely urinary source Cont ceftriaxone and fluid support Cultures pending (3) UTI (urinary tract infection) Comment: Pending blood and urine cultures Cont empiric ceftriaxone (4) Seroma Comment: s/p hiatal hernia repair at [facility] end of May Post-operative seroma identified on CT at GE junction No evidence of esophageal obstruction based on imaging (5) Seizure disorder Comment: Well controlled for at least the last 40 yrs per her son Phenytoin and phenobarb levels elevated at admission Last dose >24 hrs prior Plan to monitor daily serum levels resume when therapeutic levels are reached EEG pending (6) Failure to thrive Comment: Nutritional status has been poor for several months She was only tolerating liquids preoperatively and was only recently advanced to soft foods Unsure of how much weight she has lost Evidence of some muscle wasting Will check prealbumin to help establish a baseline at this time Patient is unable to take anything oral at this time due to her compromised mental status She will require a swallow evaluation when her mental status improves Consider parenteral support if mental status does not improve in the next 24-48 hours Patient's son and proxy will consider how aggressive he would like to be in providing nutritional support (7) Edema Comment: Unilateral edema noted on exam Will check Doppler to assess for DVT given recent surgery and prolonged immobilization (8) Full code status (9) DVT prophylaxis Comment: SQ heparin Status and Disposition: Inpatient. Anticipate prolonged hospital stay.
--- NOTE | 2017-08-13 14:28 | RAD ---
INDICATION: Pain and swelling. COMPARISON: January 22, 2013 TECHNIQUE: Duplex interrogation of the Lowerextremity was performed. FINDINGS: Deep veins: The common femoral, great saphenous, profunda femoris, proximal, mid, and distal deep femoral, popliteal, posterior tibial, and peroneal veins were interrogated. There is acute deep venous thrombosis with occlusive thrombus on the right at the saphenofemoral junction. The peroneal and posterior tibial veins are also thrombosed. On the left there is occlusive thrombus extending from the common iliac vein to the tibial vessels and there is thrombus in the great saphenous. Popliteal fossa:There is no evidence of a popliteal cyst. Soft tissues:There are no soft tissue abnormalities. IMPRESSION: Extensive bilateral deep venous thrombosis
[2017-08-13] MEDS: NS 0.9% 1000 ML* 1,000 ML IV SCH (14:42)
[2017-08-13] MEDS: Enoxaparin(*) 60 MG/0.6 ML SYR SUBCUT SCH (16:05)
[2017-08-13 16:38] LABS: Hematocrit 37 % (35-47); Hemoglobin 12.1 g/dl (12.0-16.0); Mean Corpuscular HGB Conc 33 g/dl (31-36); Mean Corpuscular Hemoglobin 31 pg (27-31); Mean Corpuscular Volume 95 fL (80-97); Mean Platelet Volume 7 um3 (7.4-10.4); Red Blood Count 3.88 10^6/ul (4.0-5.4); Red Cell Distribution Width 18 % (10.5-15); White Blood Count 10.4 10^3/ul (3.5-10.8)
--- NOTE | 2017-08-13 19:20 | CONS ---
CC: Dr. Weldon; Dr. Jean Gaxiola; Dr. Danny Rizzo, [facility] CONSULTATION REPORT: DATE OF CONSULT: 08/13/17 HISTORY OF PRESENT ILLNESS: The patient is an 81-year-old female who underwent a laparoscopic Nisse n fundoplication for a paraesophageal hernia roughly 1 month ago down at [facility]. Hua gilbert has had some issues of failure to thrive recently, was in [facility] for a while. She was also being for treated for esophageal candidiasis postoperatively. In any case, she presents [facility] now being very weak and lethargic and almost unresponsive, and I am asked to consult as to whether there is anything amiss with regard to her hiatal hernia repair. Again by hi story, this was a laparoscopic paraesophageal hiatal hernia repair without any untoward findings acc ording to the notes I have seen from the original surgeon. PHYSICAL EXAM: On examination, she is arousable with shaking or prodding but does not answer questi ons. The abdomen is soft, apparently nontender, and she does respond to painful stimuli. The incis ions are healing nicely without any sign of infection or herniation. DIAGNOSTIC STUDIES/LAB DATA: I have reviewed her CT scans, and to my evaluation, this is perfectly compatible with a postoperative paraesophageal hiatal hernia repair. She has what appears to be an intact wrap. The contrast seems to flow nicely through the wrap and into the stomach. The esophagu s shows no extravasation and there is a fluid collection in the mediastinum, which likely represents the region of the paraesophageal hernia sac and this typically fills with fluid in the postoperativ e period and will gradually mathew over the next few months. In short, I think this is a normal postoperative appearance on CT scan of a paraesophageal hiatal he rnia repair. I do not think there is a surgical explanation for her current condition. It is possi ble that her esophageal candidiasis could be contributing to poor oral intake, but I see no reason i n terms of the surgical procedure that she could not be taking any kind of liquids orally. I will be happy to assist further should the need arise. [id number]/[facility] #: [id number]
[2017-08-13] MEDS: Latanoprost 0.005%* 2.5 ml BTL BOTH EYES SCH (21:39)
[2017-08-14] MEDS: cefTRIAXone VIAL(*) 1,000 MG in NS 0.9% 50 ML* 50 ML IVPB SCH (03:02)
[2017-08-14] MEDS: NS 0.9% 1000 ML* 1,000 ML IV SCH ×2 (03:02→16:25)
[2017-08-14] MEDS: Enoxaparin(*) 60 MG/0.6 ML SYR SUBCUT SCH ×2 (03:09→14:42)
[2017-08-14] MEDS ORDERED: Heparin VIAL(*) 5000 UNITS/ML VIAL (FIVE THOUSAND) SUBCUT SCH (06:00)
--- NOTE | 2017-08-14 07:36 | EEG ---
ELECTROENCEPHALOGRAPHY: DATE OF STUDY: 08/13/17 - ROOM #[id number] CLINICAL PROBLEM: Molly Varela is an 81-year-old female admitted to the [facility] in room 346, bed 1 on 08/12/17 for failure to thrive. She had a history of a hiatal hernia repair about a month ago and was residing at [facility] up until 2 weeks ago. The patient's son determined [facility] to be dissatisfactory in care, and describing issues with lethargy, UTI, and dehydration, and brought the patient home to live with him. Per EMS, the patient has been declining since leaving [facility] care. The patient has been nonverbal for over a week and unable to eat on 08/12/17. She has a past medical history of a seizure disorder, stroke, atrial septal aneurysm, mitral valve prolapse, and osteoporosis. Her phenobarbital and phenytoin levels were noted to be elevated on admission per apartment maintenance technician report. REPORT: This is a 16-channel EEG. In the beginning of the record, there was clear slowing in the background rhythm. The patient was noted to be snoring. Theta activity was noted with an intermittent delta activity and vertex waves. At times, there was some suppression of the record which could last for a second or two. With arousal, there was increased muscle artifact superimposed on slowing of the background rhythm. As the record continued, there continued to be background slowing in the theta and delta range with occasional suppression of the background rhythm and occasional vertex wave. There was no evidence of ongoing seizure activity. CLINICAL IMPRESSION: This was an abnormal EEG. There was diffuse slowing with minimal change with clinical stimulation. These findings may be seen in the setting of an encephalopathy. [id number]/[facility] #: [id number] [facility]
[2017-08-14 08:50] LABS: Hematocrit 39 % (35-47); Hemoglobin 13.1 g/dl (12.0-16.0); Mean Corpuscular HGB Conc 33 g/dl (31-36); Mean Corpuscular Hemoglobin 32 pg (27-31); Mean Corpuscular Volume 96 fL (80-97); Mean Platelet Volume 7 um3 (7.4-10.4); Red Blood Count 4.09 10^6/ul (4.0-5.4); Red Cell Distribution Width 18 % (10.5-15); White Blood Count 9.6 10^3/ul (3.5-10.8)
[2017-08-14 09:00] LABS: BUN/Creatinine Ratio 21.4 (8-20); Blood Urea Nitrogen 9 mg/dL (6-24); CO2 Carbon Dioxide 26 mmol/L (22-32); Calcium 8.6 mg/dL (8.6-10.3); Chloride 101 mmol/L (101-111); EGFR African American 186.7 (>60); EGFR Non-African American 145.2 (>60); Glucose 83 mg/dL (70-100); Sodium 135 mmol/L (133-145)
[2017-08-14 09:22] LABS: Phenytoin 35.2 mcg/mL (10-20)
[2017-08-14 10:02] LABS: Anion Gap 8 mmol/L (2-11)
[2017-08-14] MEDS: Famotidine IV* 10 MG/ML 2 ML (20 mg) IV SLOW PU SCH ×2 (11:08→22:20)
[2017-08-14] MEDS: Aspirin SUPP* 300 MG PR SCH (11:16)
--- NOTE | 2017-08-14 15:20 | PN ---
Subjective Date of Service: 08/14/17 Interval History: Ms. Varela reports that she is feeling well and she has no complaints. She is reported by her family to be much more alert, awake, and verbal today. She if following commands and interacting appropriately, though slowly and weakly. Objective Active Medications: Acetaminophen (Tylenol Supp*) 650 mg SD Q6H PRN Aspirin (Aspirin Supp*) 300 mg SD DAILY ROXANE Enoxaparin Sodium (Lovenox(*)) 60 mg SUBCUT Q12H ROXANE Famotidine (Pepcid Iv*) 20 mg IV SLOW PU BID ROXANE Sodium Chloride (Ns 0.9% 1000 Ml*) 1,000 mls @ 85 mls/hr IV PER RATE ROXANE Ceftriaxone Sodium 1,000 mg/ (Sodium Chloride) 50 mls @ 200 mls/hr IVPB Q24H ROXANE Latanoprost (Xalatan 0.005%*) 1 drop BOTH EYES BEDTIME ROXANE Ondansetron HCl (Zofran Inj*) 4 mg IV Q6H PRN Vital Signs: Temp Pulse Resp BP Pulse Ox 97.6 F 85 16 113/64 99 08/14/17 16:03 08/14/17 16:03 08/14/17 16:03 08/14/17 16:03 08/14/17 16:03 Oxygen Devices in Use Now: None Appearance: Female lying in bed in NAD Eyes: No Scleral Icterus Ears/Nose/Mouth/Throat: Mucous Membranes Moist Neck: Trachea Midline Respiratory: Symmetrical Chest Expansion and Respiratory Effort, Clear to Auscultation Cardiovascular: NL Sounds; No Murmurs; No JVD, No Edema Abdominal: NL Sounds; No Tenderness; No Distention Lymphatic: No Cervical Adenopathy Extremities: No Edema Skin: No Rash or Ulcers Neurological: - - Alert, responds slowly but is oriented x 3, follows commands. Right upper extremity weakness noted. Face symmetric. Nutrition: Taking PO's Result Diagrams: 08/14/17 08:26 08/14/17 08:26 Additional Lab and Data: . Microbiology and Other Data: Microbiology 08/13/17 10:31 Blood Culture - Preliminary Blood Venous No Growth Day 1 Assess/Plan/Problems-Billing Assessment: This is an 81 yo female with h/o prior CVA and sz d/o who presents with AMS after progressive decline over the last several months complicated by recent hiatal hernia repair. - Patient Problems (1) Sepsis Comment: - Septic on admission secondary to UTI. - Mentation improved with abx and IVF. (2) Encephalopathy Comment: - Much improved overnight. - Likely acute toxic encephalopathy secondary to sepsis and complicated by elevated phenobarbital and phenytoin levels. No acute findings on CT of the brain. - EEG with diffuse slowing and no epileptiform discharge. (3) UTI (urinary tract infection) Comment: -Given symptoms and positive UA with continue treatment with ceftriaxone x 3 days. -Urine culture shows no growth. (4) DVT (deep venous thrombosis) Comment: - Continue lovenox. - Will consider switching to NOAC when patient more stable. (5) Failure to thrive Comment: - Resume diet now that she is alert. Nutritional supplements ordered, nutrition consult ordered. - Nutritional status has been poor for several months - She was only tolerating liquids preoperatively and was only recently advanced to soft foods. Unsure of how much weight she has lost. Evidence of some muscle wasting. Pre-albumin 14 indicating reasonable protein stores given her prolonged decline. (6) Seizure disorder Comment: Well controlled for at least the last 40 yrs per her son Phenytoin and phenobarb levels elevated at admission Last dose >24 hrs prior Plan to monitor daily serum levels resume when therapeutic levels are reached EEG pending (7) Seroma Comment: s/p hiatal hernia repair at [facility] end of May Post-operative seroma identified on CT at GE junction No evidence of esophageal obstruction based on imaging (8) DVT prophylaxis Comment: SQ heparin (9) Full code status Status and Disposition: Inpatient. Anticipate patient will need additional support at home or would benefit from rehab.
--- NOTE | 2017-08-14 15:26 | PN ---
Subjective Date of Service: 08/14/17 Interval History: Ms. Varela states that she is feeling well. She is much more alert, is verbal , and is following commands, which is a dramatic improvement since yesterday. She denies any specific complaint including chest pain, SOB, nausea, or abdominal pain. Objective Active Medications: Acetaminophen (Tylenol Supp*) 650 mg MS Q6H PRN Aspirin (Aspirin Supp*) 300 mg MS DAILY ROXANE Enoxaparin Sodium (Lovenox(*)) 60 mg SUBCUT Q12H ROXANE Famotidine (Pepcid Iv*) 20 mg IV SLOW PU BID ROXANE Sodium Chloride (Ns 0.9% 1000 Ml*) 1,000 mls @ 85 mls/hr IV PER RATE ROXANE Ceftriaxone Sodium 1,000 mg/ (Sodium Chloride) 50 mls @ 200 mls/hr IVPB Q24H ROXANE Latanoprost (Xalatan 0.005%*) 1 drop BOTH EYES BEDTIME ROXANE Ondansetron HCl (Zofran Inj*) 4 mg IV Q6H PRN Vital Signs: Temp Pulse Resp BP Pulse Ox 97.6 F 85 15 146/48 98 08/14/17 11:14 08/14/17 11:14 08/14/17 11:14 08/14/17 11:14 08/14/17 11:14 Oxygen Devices in Use Now: None Appearance: Female lying in bed in NAD Eyes: No Scleral Icterus Ears/Nose/Mouth/Throat: Mucous Membranes Moist Neck: Trachea Midline Respiratory: Symmetrical Chest Expansion and Respiratory Effort, Clear to Auscultation Cardiovascular: NL Sounds; No Murmurs; No JVD, No Edema Abdominal: NL Sounds; No Tenderness; No Distention Lymphatic: No Cervical Adenopathy Extremities: No Edema Skin: No Rash or Ulcers Neurological: Alert and Oriented x 3, - - Right sided upper extremity weaker than left, right pronator drift noted. Bilateral LEs weak, barely able to lift from bed. Face symmetric. Pupils equal and reactive. Result Diagrams: 08/14/17 08:26 08/14/17 08:26 Additional Lab and Data: . Microbiology and Other Data: Microbiology 08/13/17 10:31 Blood Culture - Preliminary Blood Venous No Growth Day 1 Assess/Plan/Problems-Billing Assessment: This is an 81 yo female with h/o prior CVA and sz d/o who presents with AMS after progressive decline over the last several months complicated by recent hiatal hernia repair. Status and Disposition: Inpatient. Anticipate prolonged hospital stay.
[2017-08-14] MEDS: Latanoprost 0.005%* 2.5 ml BTL BOTH EYES SCH (22:20)
[2017-08-15] MEDS: cefTRIAXone VIAL(*) 1,000 MG in NS 0.9% 50 ML* 50 ML IVPB SCH (02:55)
[2017-08-15] MEDS: Enoxaparin(*) 60 MG/0.6 ML SYR SUBCUT SCH ×2 (02:56→14:44)
[2017-08-15] MEDS: NS 0.9% 1000 ML* 1,000 ML IV SCH (07:12)
[2017-08-15] MEDS: Famotidine IV* 10 MG/ML 2 ML (20 mg) IV SLOW PU SCH ×2 (08:20→21:45)
[2017-08-15] MEDS: Aspirin SUPP* 300 MG PR SCH (08:23)
--- NOTE | 2017-08-15 14:36 | CONS ---
CONSULTATION REPORT: DATE OF CONSULT: 08/15/17 LOCATION: She is currently in [facility], bed 1. REASON FOR CONSULT: Altered mental status. SOURCE OF INFORMATION: Chart review. Her son is at the bedside and the patient. Of note, the son is a poor historian and was able to give me some supplemental history. The patient was a poor historian as well. HISTORY OF PRESENT ILLNESS: From what I gather from the review of her medical records, Ms. Varela recently had a hiatal hernia repair several months ago, subsequently had a seroma that developed and was readmitted to the hospital. This was approximately 1 month ago. It was during that time that the son states that she had a decline in her strength. He states that she was walking and ambulating, but over the course of the last month, she seems to have declined and this seems to have started about the time she went back into the hospital. She was initially discharged to [facility] for several weeks for rehab. The family was unhappy with her care there and they checked her out and brought her home 2 weeks ago. The son states since they brought her home, she has continued to make a gradual decline. She has become more and more weak, more bed dependent, unable to participate in her own care and the family states that in the last few weeks her appetite has diminished and that in the last few days prior to admission, her mental status declined as well. They said they did get a managing consultant out who recommended supplementing her diet, but that she was not eating well, not taking good p.o. In addition, she apparently had some physical therapy at home, but over the last several weeks, her weakness has become more profound. The son states that a month ago, she was able to hold her leg up at 30 degrees for 15 seconds, but at the time of admission she was not able to do that at all. There was no reports of any recent illnesses, nausea, vomiting, fevers, chills, shortness of breath, dyspnea on exertion from the son, but he did note that she had a very poor appetite and was making a slow gradual decline. Apparently, she had been largely nonverbal for several days prior to admission. When she was admitted to the hospital, she initially had a white count of 12.5. Her initial chemistries showed a creatinine of 0.71 , slightly elevated LFTs, C-reactive protein of 149.82, TSH of 1.48, calcium of 10.5, glucose of 133. She does have a history of seizures as well. The son states that this started back at the age of 18. She has been on Dilantin and phenobarbital for 60 years. Her last seizure was about 45 years ago. When she came into the hospital, her Dilantin level was 37.6. Her phenobarbital level was 36.4. Those were held. Her most recent phenobarbital level from the was 26.9 and then 26 yesterday. Her Dilantin level was 35.2 yesterday. Serum alcohol was less than 10. Her acetaminophen was less than 15. She did have a head CT done on admission. Report shows atrophy with evidence of prior vascular insult. No acute findings. The son states that she may have had a stroke years ago. She had some right-sided facial droop and it was thought that it could be a stroke versus Layton's palsy, but he did not have any more information about that. Initially, when she was admitted, she was largely obtunded but yesterday she seemed to have improved somewhat, she woke up some, but remains confused and remains profoundly weak. There have been no other issues reported overnight. This morning her son states that she is more interactive than she was, but compared to her baseline several months ago, she is definitely not as talkative and not as responsive. PAST MEDICAL HISTORY: As noted above. PAST SURGICAL HISTORY: Includes a hiatal hernia repair, hysterectomy, open reduction internal fixation of the right shoulder, and a right TKA. CURRENT MEDICATIONS: 1. Tylenol 650 mg p.r. q.6 hours p.r.n. 2. Aspirin 300 mg p.r. daily. 3. Ceftriaxone. 4. Enoxaparin. 5. Pepcid IV 20 mg b.i.d. 6. Latanoprost 1 drop to both eyes at bedtime. 7. Zofran. 8. She is on a low dose aspirin at home. 9. Apparently per her records, she is on Dilantin 200 mg every other day with 300 mg alternate days. 10. She is also on phenobarbital 16.2 mg p.o. t.i.d. ALLERGIES: ALENDRONATE, IODINE, CONTRAST MEDIA. FAMILY HISTORY: Significant for coronary artery disease in her father, CVA in her mother, and a brother with some seizures in the past. SOCIAL HISTORY: No recent alcohol, tobacco, or drug use. She lives at home with her family. REVIEW OF SYSTEMS: Review of systems in 14-organ systems was difficult to obtain. The patient is unreliable but denies any current pain, shortness of breath, nausea, vomiting. No abdominal pain. She denies any dysuria. The son states that she does have some sores on her buttocks and she has some "butt pain." She denies any musculoskeletal aches or pains, but again, the review of systems is somewhat unreliable. PHYSICAL EXAM: Vital Signs: Temp of 98.4, heart rate of 93, respiratory rate of 18, O2 sat of 98%, blood pressure 121/41. In general, she is a well-developed thin female, in no acute distress. She is lying in her hospital bed. She is awake, but somnolent. HEENT: She is normocephalic, atraumatic. Sclerae are anicteric. Mucous membranes are dry. Oropharynx is clear. Poor dentition. Neck is supple. No carotid bruits. Chest: Clear to auscultation bilaterally. Cardio-vascular: Regular rate and rhythm. Abdomen: Nondistended. Extremities: There is 1+ edema in the lower extremities to the knees, nonpitting. She does have several sores on her buttocks. Neurologic exam: She is awake, but somnolent. She is oriented to person and hospital and [place] only. Cranial nerves, her pupils are equal, round, and reactive to light. Extraocular muscles are intact. Her visual olguin appear full. Her face is symmetric. Her tongue is midline. Hearing appears to be bilaterally diminished, but symmetric. Sensation on the face appears to be intact. Difficult sternocleido-mastoid and trapezius examination. Her palate does elevate symmetrically. She has minimal speech, but does answer yes, no questions and able to give one-word answers. It is somewhat slurred. She does not repeat and it takes her some time to answer questions. She spontaneously moves all extremities, but the examination was extremely difficult as she was noncompliant. She is able to wiggle her toes and hands. She was able to squeeze my fingers 4-/5. Some resistance in the upper extremities proximally and distally 4-/5. In the lower extremities, proximally she was able to barely lift her legs off the bed, but no resistance distally, 4-/5 plantarflexion and dorsiflexion. Tone appears to be normal. There is no atrophy present. DTRs were very difficult to asses, trace in the upper extremities bilaterally at the biceps and brachio-radialis, patella were absent, ankles were absent. Babinski' s were equivocal. She was unable to do [id number], but rapid alternating movements were slow but there were no tremors noted. Gait was not tested. DIAGNOSTIC STUDIES/LAB DATA: Lab work as noted above. CT scan as noted above. She had an EEG done yesterday which showed slowing, but no seizure-like activity. She had a venous Doppler done as well yesterday, which showed extensive bilateral deep venous thrombosis in the lower extremities. She had an abdomen and pelvis CT done on admission. A small hiatal hernia was noticed at the level of the GE junction. No evidence of extravasation of contrast in the stomach. Small localized fluid collection at the level of the GE junction to the right of the esophagus measuring 3.5 x 1.8 cm. Surgery was consulted and saw her regarding her recent surgery and feels that there are no acute issues at this time. ASSESSMENT AND PLAN: Ms. Varela is an 82-year-old female with a known history of seizure disorder from many years. No seizures for over 40 years, on phenobarbital and Dilantin. She also has a history of a recent hiatal hernia surgery with a failure to thrive and decline since that time. Over the last several days prior to admission, became more confused, more obtunded and has had generalized weakness progressing over the last few weeks. When she came in, her Dilantin and phenobarbital levels were elevated, they were held. Most recent phenobarbital level has normalized, but her Dilantin remains very high. CT of the brain showed no acute changes. She does have a history of a stroke with right-sided facial weakness, but that seems to have resolved. She is on an aspirin at home. At this point, my suspicion is that her weakness is multifactorial in nature. While her examination was very difficult, I see no obvious focality to her examination. I do think an MRI of the brain is appropriate given the change in her mental status, but I suspect that the elevated Dilantin level specifically, but also the phenobarbital levels may have contributed to her condition. It is likely that these levels have been increasing over the last few weeks. She is currently at a toxic range of Dilantin and I would recommend telemetry monitoring for her as Dilantin toxicity can be associated with arrhythmias. I see no obvious nystagmus or other signs or symptoms of toxicity , although the examination was difficult. I would continue to treat her conservatively, hydrate, supplement her nutrition as much as possible. It appears that she has already made some improvement from yesterday and it is likely will gradually improve as well. I suspect that there is an underlying element of deconditioning associated with this. Apparently, she had a difficult time at the half-way and since she has been at home, it is unclear how much physical therapy she has received. I am going to check muscle enzymes as well to look for any evidence of rhabdo, but my suspicion is low. We will check some additional labs including B12, folate. Her TSH was normal. We will need to restart her Dilantin once her levels have normalized. She has had no seizures in the last 40 years and my suspicion that she has had a new seizure is low. I would not expect her to be this confused for this long after a seizure and she is improving. My suspicion for something like status is very low as well. She is on antibiotics for the possibility of an underlying sepsis , although I did speak with her primary care physician, who will continue her antibiotics for now, but it does not appear that this is primarily infectious in nature. I will continue to follow her closely and make further recommendations as necessary. Thank you for the opportunity to participate in the care of this very nice lady. [id number]/[facility] #: [id number] PRECIOUS
[2017-08-15 15:02] LABS: Folate 3.72 ng/mL (>3.99)
--- NOTE | 2017-08-15 15:27 | PN ---
Subjective Date of Service: 08/15/17 Interval History: Ms. Varela states that she is feeling ok today. She denies any acute complaint. Her family are happy that she is a bit stronger and remains awake and alert. She specifically denies chest pain, SOB, nausea, or abdominal pain. Objective Active Medications: Acetaminophen (Tylenol Supp*) 650 mg MT Q6H PRN Aspirin (Aspirin Supp*) 300 mg MT DAILY ROXANE Enoxaparin Sodium (Lovenox(*)) 60 mg SUBCUT Q12H ROXANE Famotidine (Pepcid Iv*) 20 mg IV SLOW PU BID ROXANE Sodium Chloride (Ns 0.9% 1000 Ml*) 1,000 mls @ 85 mls/hr IV PER RATE ROXANE Ceftriaxone Sodium 1,000 mg/ (Sodium Chloride) 50 mls @ 200 mls/hr IVPB Q24H ROXANE Latanoprost (Xalatan 0.005%*) 1 drop BOTH EYES BEDTIME ROXANE Ondansetron HCl (Zofran Inj*) 4 mg IV Q6H PRN Vital Signs: Temp Pulse Resp BP Pulse Ox 97.9 F 97 16 130/52 100 08/15/17 12:09 08/15/17 12:09 08/15/17 12:09 08/15/17 12:09 08/15/17 12:09 Oxygen Devices in Use Now: None Appearance: Female lying in bed in NAD Eyes: No Scleral Icterus Ears/Nose/Mouth/Throat: Mucous Membranes Moist Neck: Trachea Midline Respiratory: Symmetrical Chest Expansion and Respiratory Effort, Clear to Auscultation Cardiovascular: NL Sounds; No Murmurs; No JVD, No Edema Abdominal: NL Sounds; No Tenderness; No Distention Lymphatic: No Cervical Adenopathy Extremities: No Edema Skin: No Rash or Ulcers Neurological: Alert and Oriented x 3, - - Generalized weakness, no focal weakness Nutrition: Taking PO's Result Diagrams: 08/14/17 08:26 08/14/17 11:45 Additional Lab and Data: . Microbiology and Other Data: Microbiology 08/13/17 10:31 Blood Culture - Preliminary Blood Venous No Growth Day 1 Assess/Plan/Problems-Billing Assessment: This is an 81 yo female with h/o prior CVA and sz d/o who presents with AMS after progressive decline over the last several months complicated by recent hiatal hernia repair. - Patient Problems (1) Encephalopathy Comment: - No significant change from yesterday. Remains A/Ox3 but very weak. - Likely acute toxic encephalopathy secondary to sepsis, dehydration and complicated by elevated phenobarbital and phenytoin levels. No acute findings on CT of the brain. EEG with diffuse slowing and no epileptiform discharge. - Appreciate neurology consulation, agrees that there are no focal findings at this point but that a MRI brain would be warranted given her acute decline. (2) Sepsis Comment: - Afebrile. - Septic on admission secondary to UTI. - Mentation improved with abx and IVF. - Complete 3 day course of ceftriaxone. (3) UTI (urinary tract infection) Comment: -Given symptoms and positive UA with continue treatment with ceftriaxone x 3 days. -Urine culture shows no growth. (4) DVT (deep venous thrombosis) Comment: - Continue lovenox. - Will consider switching to NOAC when patient more stable. (5) Failure to thrive Comment: - Resume diet now that she is alert. Nutritional supplements ordered, nutrition consult ordered. - Nutritional status has been poor for several months - She was only tolerating liquids preoperatively and was only recently advanced to soft foods. Unsure of how much weight she has lost. Evidence of some muscle wasting. Pre-albumin 14 indicating reasonable protein stores given her prolonged decline. (6) Seizure disorder Comment: - Well controlled for at least the last 40 yrs per her son. - Phenytoin and phenobarb levels elevated at admission. - Plan to monitor daily serum levels, resume when therapeutic levels are reached. - EEG shows slowing only, no epileptiform discharges. (7) Seroma Comment: - s/p hiatal hernia repair at [facility] end of May. - Post-operative seroma identified on CT at GE junction. - No evidence of esophageal obstruction based on imaging (8) DVT prophylaxis Comment: - Lovenox. (9) Full code status Status and Disposition: Inpatient. Anticipate patient will need additional support at home or would benefit from rehab.
[2017-08-15 15:40] LABS: Phenytoin 24.5 mcg/mL (10-20)
[2017-08-15] MEDS: Latanoprost 0.005%* 2.5 ml BTL BOTH EYES SCH (21:46)
[2017-08-16] MEDS: NS 0.9% 1000 ML* 1,000 ML IV SCH ×2 (00:35→14:41)
[2017-08-16] MEDS: cefTRIAXone VIAL(*) 1,000 MG in NS 0.9% 50 ML* 50 ML IVPB SCH (02:21)
[2017-08-16] MEDS: Enoxaparin(*) 60 MG/0.6 ML SYR SUBCUT SCH ×2 (02:24→14:41)
[2017-08-16] MEDS: Famotidine IV* 10 MG/ML 2 ML (20 mg) IV SLOW PU SCH ×2 (09:31→21:54)
[2017-08-16] MEDS: Aspirin SUPP* 300 MG PR SCH (10:27)
--- NOTE | 2017-08-16 10:58 | PN ---
Progress Note - Progress Note Date of Service: 08/16/17 SOAP: Subjective: Overnight, no new issues. The son and family are at the bedside. The son states that she is much better today from a week ago. She is more awake and responsive although she remains very weak. No new issues overnight. MRI pending today. He tells me that her normal Phenobarb and Phenytoin doses are as follow: Med 9am 2pm 11pm Phenytoin 100mg 1 1 1 Phenobarb 16.2 mg 2 1 1 But 2 weeks ago, her PCP checked the levels and told the son to drop the doses to the following: Med 9am 2pm 11pm Phenytoin 100mg 1 1 1 QOD Phenytoin 100mg 1 1 Alternate days Phenobarb 16.2 mg 1 1 1 It was shortly after she decreased the dose that she came into the hospital with both Dilantin and Phenobarb levels elevated. Objective: Active Medications: Acetaminophen (Tylenol Supp*) 650 mg W[place] Q6H PRN PRN Reason: FEVER/PAIN Last Admin: 08/14/17 22:13 Dose: 650 mg Aspirin (Aspirin Supp*) 300 mg WV DAILY [facility] Last Admin: 08/16/17 10:27 Dose: 300 mg Enoxaparin Sodium (Lovenox(*)) 60 mg SUBCUT Q12H [facility] Last Admin: 08/16/17 02:24 Dose: 60 mg Famotidine (Pepcid Iv*) 20 mg IV SLOW PU BID [facility] Last Admin: 08/16/17 09:31 Dose: 20 mg Sodium Chloride (Ns 0.9% 1000 Ml*) 1,000 mls @ 85 mls/hr IV PER RATE [facility] Last Admin: 08/16/17 00:35 Dose: 85 mls/hr Ceftriaxone Sodium 1,000 mg/ (Sodium Chloride) 50 mls @ 200 mls/hr IVPB Q24H [facility] Last Admin: 08/16/17 02:21 Dose: 200 mls/hr Latanoprost (Xalatan 0.005%*) 1 drop BOTH EYES BEDTIME [facility] Last Admin: 08/15/17 21:46 Dose: 1 drop Ondansetron HCl (Zofran Inj*) 4 mg IV Q6H PRN PRN Reason: NAUSEA Vital Signs - 8 hr 08/16/17 08/16/17 04:37 07:17 Temperature 97.5 F 98.1 F Pulse Rate 94 85 Respiratory 16 18 Rate Blood Pressure 129/43 133/51 (mmHg) O2 Sat by Pulse 100 100 Oximetry Gen: NC/AT, sclera anicteric, poorly nourished Neck: Supple Chest: CTAB CVS: RRR Abdomen: NT Ext: 2+ edeam in the legs to the shins Skin: cool, dry Neuro: Awake, somnolent and slow to answer. Oriented to person. Speech: Slow, hypophonia, fluent CN: PERRLA, EOMi, Face Symmetric, VFF, Tongue midline, Palate symmetric Motor: Profoundly weak with some poor effort. Basically moving all extremities with little to no resistance Tone: Diminished throughout Sensation: Grossly intact to LT/Pain X 4 No resting tremors noted Laboratory Results - last 24 hr 08/14/17 08/15/17 11:45 11:47 Potassium 2.9 L Total Creatine Kinase 11 Myoglobin 22.0 Vitamin B12 542 Folate 3.72 Phenytoin 24.5 H MRI Pending: Assessment: 82 year old with a history of a seizure disorder on Dilantin and Phenobarb, no seizures in 45+ years, recent GI surgery with complications. Was initially admitted to [facility] but failed to thrive. The family was unhappy with her care and took her home. Over the last month, her condition has deteriorated. She has become profoundly weak, no longer ambulating, with poor appetite and presented obtunded. On admission, her Dilantin and Phenobarb levels were markedly elevated. Plan: 1. MRI today to rule out acute stroke, suspicion is low at this point 2. Recheck Dilantin and Phenobarb levels today. Plan will be to restart her medications once normalized. My suspicion for seizures is low given the slow, progressive nature of her decline. I would restart the following doses: --Dilantin: start with 200mg po q day and monitor levels closely --Phenobarb: 16.2 mg. Start 1 po TID and monitor levels She will need close follow up and level checks as outpatient with adjustment as necessary. I do think her MS changes and likely failure to thrive are, at least in part , secondary to her toxicity Continue to monitor on Tele 3. Suspect there is an element of depression, anorexia, anhedonia present as well. Will need to follow closely as an outpatient and add/adjustment antidepressant as necessary. 4. Nutrition is a major part of her decline. Will get nutrition consult and will need her caloric intake monitored closely as o/p 5. Deconditioning: An ongoing issue since her last surgery. Needs PT, mobilization as much as possible. No evidence of Rhabdo I will continue to follow along 4.
--- NOTE | 2017-08-16 14:49 | RAD ---
HISTORY: Right-sided weakness COMPARISONS: June 09, 2014 TECHNIQUE: The following sequences were obtained of the head: Sagittal T1-weighted images, axial T2-weighted images, axial FLAIR images, axial susceptibility weighted images, axial T1-weighted images. Additionally, axial diffusion-weighted images were obtained with calculated apparent diffusion coefficients. FINDINGS: HEMORRHAGE/INFARCT: There is no hemorrhage or acute infarct. MASSES/SHIFT: There is no mass or shift. EXTRA-AXIAL SPACES/MENINGES: There are no extra-axial fluid collections. SULCI AND VENTRICLES: There is diffuse and proportional enlargement of the sulci and ventricles. CEREBRUM: There are multiple scattered small foci of elevated T2/FLAIR signal within the periventricular and subcortical white matter. This has progressed in the previous examination. BRAINSTEM: There are no focal parenchymal abnormalities. CEREBELLUM: There are no focal parenchymal abnormalities. The cerebellar tonsils are normal in size and position. SELLA: The sella is normal. PINEAL: The pineal region is clear. CP ANGLE/TEMPORAL BONES: The labyrinthine structures are grossly normal. VESSELS: Normal flow-voids are noted within the visualized vertebral vasculature. DIFFUSION ABNORMALITIES: There are no diffusion abnormalities. PARANASAL SINUSES/MASTOIDS: The paranasal sinuses are clear. ORBITS: The orbits are unremarkable. BONES AND SOFT TISSUE: No bone or soft tissue abnormalities are noted. OTHER: None IMPRESSION: 1. DIFFUSE INVOLUTIONAL CHANGE. 2. THERE IS MULTIFOCAL ELEVATED T2/FLAIR SIGNAL IN THE PERIVENTRICULAR AND SUBCORTICAL WHITE MATTER. WHILE NONSPECIFIC, THE APPEARANCE IS SUGGESTIVE OF CHRONIC SMALL VESSEL ISCHEMIA.
[2017-08-16 15:35] LABS: Free Phenytoin Level 5.3 mcg/mL (1.0 - 2.0)
[2017-08-16 17:59] LABS: Phenytoin 19.6 mcg/mL (10-20)
--- NOTE | 2017-08-16 18:35 | PN ---
Subjective Date of Service: 08/16/17 Interval History: Ms. Varela is very lethargic and weak but she denies any complaint today. She specifically denies chest pain, SOB, nausea, or abdominal pain. Patient was the subject of a CAT call today when patient's family reported that she was acting unusually--staring off into space, slumping over to the side. Nursing confirmed that she was less responsive than usual. However, by the time she was back in bed using the faby lift, she was back to her current baseline and answering questions appropriately. Objective Active Medications: Acetaminophen (Tylenol Supp*) 650 mg [place] Q6H PRN Aspirin (Aspirin Supp*) 300 mg NM DAILY [facility] Enoxaparin Sodium (Lovenox(*)) 60 mg SUBCUT Q12H [facility] Famotidine (Pepcid Iv*) 20 mg IV SLOW PU BID [facility] Ceftriaxone Sodium 1,000 mg/ (Sodium Chloride) 50 mls @ 200 mls/hr IVPB Q24H [facility] Sodium Chloride (Ns 0.9% 1000 Ml*) 1,000 mls @ 100 mls/hr IV PER RATE [facility] Latanoprost (Xalatan 0.005%*) 1 drop BOTH EYES BEDTIME [facility] Ondansetron HCl (Zofran Inj*) 4 mg IV Q6H PRN Phenobarbital (Phenobarbital Liq(*)) 15 mg PO TID [facility] Vital Signs 08/15/17 08/15/17 08/15/17 20:00 20:13 20:17 Temperature 97.0 F Pulse Rate 89 Respiratory 16 16 Rate Blood Pressure 125/44 (mmHg) O2 Sat by Pulse 100 Oximetry 08/15/17 08/16/17 08/16/17 23:55 04:37 07:17 Temperature 97.9 F 97.5 F 98.1 F Pulse Rate 94 94 85 Respiratory 16 16 18 Rate Blood Pressure 131/48 129/43 133/51 (mmHg) O2 Sat by Pulse 99 100 100 Oximetry 08/16/17 08/16/17 08/16/17 11:19 15:43 16:14 Temperature 97.8 F 97.0 F 97.2 F Pulse Rate 94 101 91 Respiratory 20 21 16 Rate Blood Pressure 131/60 102/59 142/72 (mmHg) O2 Sat by Pulse 98 99 99 Oximetry Oxygen Devices in Use Now: None Appearance: Female lying in bed in NAD Eyes: No Scleral Icterus Ears/Nose/Mouth/Throat: Mucous Membranes Moist Neck: Trachea Midline Respiratory: Symmetrical Chest Expansion and Respiratory Effort, Clear to Auscultation Cardiovascular: NL Sounds; No Murmurs; No JVD, No Edema Abdominal: NL Sounds; No Tenderness; No Distention Lymphatic: No Cervical Adenopathy Extremities: No Edema Skin: No Rash or Ulcers Neurological: Alert and Oriented x 3, NL Muscle Strength and Tone, - - very weak Nutrition: Taking PO's Result Diagrams: 08/14/17 08:26 08/14/17 11:45 Additional Lab and Data: . Microbiology and Other Data: Microbiology 08/13/17 10:31 Blood Culture - Preliminary Blood Venous No Growth Day 1 Assess/Plan/Problems-Billing Assessment: This is an 81 yo female with h/o prior CVA and sz d/o who presents with AMS after progressive decline over the last several months with poor oral intake due to symptoms of hiatal hernia and then complications after surgery with some suspicion for UTI with sepsis on admission but likely multifactorial causes of toxic encephalopathy including toxic phenytoin and phenobarbital levels. She has been noted to have DVTs to bilateral LEs, extensive and present on arrival. - Patient Problems (1) Seizure disorder Comment: - Concern for seizure today. - Reviewed with Dr. Figueroa. Phenytoin and phenobarb levels elevated at admission. Plan to start phenobarbital 15mg po TID (16.2 dose not available per pharmacy) now. Will start phenytoin when level is closer to 15. - EEG on admission showed slowing only, no epileptiform discharges. (2) Encephalopathy Comment: - No significant change from yesterday. Remains A/Ox3 but very weak. - Likely acute toxic encephalopathy secondary to sepsis, dehydration and complicated by elevated phenobarbital and phenytoin levels. No acute findings on CT of the brain. EEG with diffuse slowing and no epileptiform discharge. MRI brain today without acute finding. - Appreciate neurology consulation, agrees that there are no focal findings and no further workup is warranted. (3) Sepsis Comment: - Afebrile. - Septic on admission secondary to UTI. - Mentation improved with abx and IVF. - Completed 3 day course of ceftriaxone. (4) UTI (urinary tract infection) Comment: -Given symptoms and positive UA with continue treatment with ceftriaxone x 3 days. -Urine culture shows no growth. - Continued 3 day course of antibiotics given improvement in mentation with treatment. (5) DVT (deep venous thrombosis) Comment: - Continue lovenox. - Will consider switching to NOAC when patient more stable. (6) Failure to thrive Comment: - Resume diet now that she is alert. Nutritional supplements ordered, nutrition consult ordered. - Nutritional status has been poor for several months - She was only tolerating liquids preoperatively and was only recently advanced to soft foods. Unsure of how much weight she has lost. Evidence of some muscle wasting. Pre-albumin 14 indicating reasonable protein stores given her prolonged decline. (7) Seroma Comment: - s/p hiatal hernia repair at [facility] end of May. - Post-operative seroma identified on CT at GE junction. - No evidence of esophageal obstruction based on imaging (8) DVT prophylaxis Comment: - Lovenox. (9) Full code status Status and Disposition: Inpatient. Anticipate patient will need additional support at home or would benefit from rehab. Patient's family strongly want to take her home but I question whether this is safe. They are considering [facility] for swing bed.
[2017-08-16] MEDS: PHENobarbital LIQ(*) 30 MG/7.5 ML UDC PO SCH (21:53)
[2017-08-16] MEDS: Latanoprost 0.005%* 2.5 ml BTL BOTH EYES SCH (21:54)
[2017-08-17] MEDS: NS 0.9% 1000 ML* 1,000 ML IV SCH ×2 (01:05→22:39)
[2017-08-17] MEDS ORDERED: cefTRIAXone VIAL(*) 1,000 MG in NS 0.9% 50 ML* 50 ML IVPB SCH (03:00)
[2017-08-17] MEDS: Enoxaparin(*) 60 MG/0.6 ML SYR SUBCUT SCH ×2 (03:21→14:21)
[2017-08-17] MEDS: cefTRIAXone VIAL(*) 1,000 MG in NS 0.9% 50 ML* 50 ML IVPB SCH (03:23)
[2017-08-17 06:58] LABS: Phenytoin 13.5 mcg/mL (10-20)
[2017-08-17] MEDS: Aspirin EC Low Dose* 81 MG TAB.EC PO SCH (09:37)
[2017-08-17] MEDS: Phenytoin CAP(*) 100 MG CAP.ER PO SCH ×2 (09:37→21:41)
[2017-08-17] MEDS: PHENobarbital LIQ(*) 30 MG/7.5 ML UDC PO SCH ×3 (09:37→22:25)
[2017-08-17] MEDS: Famotidine IV* 10 MG/ML 2 ML (20 mg) IV SLOW PU SCH ×2 (09:37→21:41)
--- NOTE | 2017-08-17 15:23 | PN ---
PROGRESS NOTE: DATE OF CONSULTATION: 08/17/17 CURRENT LOCATION: Room 339, bed 1. SUBJECTIVE: Yesterday evening, I spoke with her primary care physician. She apparently had a CAT called for some altered mental status. I did speak with the nurse this morning, who states that she was out for about 4 minutes. She was staring forward. There was no generalized tonic-clonic activity. She came out of it after about 4 minutes and was back to her normal self per the nurse. There had been no other episodes like that since then. Since that time, she has been a little bit confused but overall seems to be back to her baseline this morning. Overnight, the nurse's note states that she has been answering verbal questions and nodding appropriately. She is sleepy but arousable, and her sacral ulcer is clean and intact. The son was concerned this morning, but we spent some time talking about her condition and talking about the fact that when she came into the hospital, her Dilantin level was very toxic and that the treatment for that is to stop the medication until she returns back to a normal level, at which point we usually restart the medication. He seemed to better understand this morning. Otherwise, no new issues overnight. OBJECTIVE: Temperature of 97.4, heart rate of 98, respiratory rate of 16, O2 sat of 100%. Blood pressure 138/57 to 131/55 to 120/54. In general, she is a well- developed, although poorly nourished female, lying in her hospital bed. Her family is at the bedside. HEENT: She is normocephalic, atraumatic. Sclerae are anicteric. Mucous membranes are dry. Oropharynx is clear. Dentition is poor. Neck is supple. Chest: Clear to auscultation bilaterally. Cardiovascular is regular rate and rhythm. Abdomen is nontender. Extremities: There is 1+ nonpitting edema in the lower extremities bilaterally. No redness or erythema noted. Neurologic Exam: She is awake, she is alert. She is oriented to [facility] but did not know the year, the date, the day of the week or the month. Her speech is fluent. There is no dysarthria. Cranial Nerves: Pupils are equal, round, and reactive to light. Extraocular muscles are intact. Visual olguin appear full to confrontation. There is no nystagmus noted. Her face is overall symmetric. Her smile is equal. Hearing is diminished bilaterally but symmetric. Tongue is midline. Oropharynx, palate is symmetric. Motor Exam: She is moving all extremities, although she has poor effort and is weak throughout 4/5 with some resistance and her tone is diminished throughout. DTRs were absent in the lower extremities bilaterally, trace at the biceps bilaterally. [id number] and rapid alternating movements could not be completed. She does not have any resting tremor noted. Sensation is diminished throughout to light touch and pinprick but symmetric. LABORATORY DATA: Lab work this morning, she had a Dilantin level this morning of 13.5, phenobarbital level of 21.9. DIAGNOSTIC STUDIES: She had a brain MRI yesterday that showed diffuse involutional changes, mild multifocal elevated T2 FLAIR signal in the periventricular and subcortical white matter nonspecific suggestive of chronic small vessel disease. ASSESSMENT AND PLAN: Ms. Varela is an 82-year-old female with history of seizure disorder, no seizures in years, on phenytoin and Dilantin, was admitted to the hospital, obtunded, very weak, deconditioned and it is most likely the toxicity of her medications that caused her mental status changes. Since her medications have been stopped, she has improved, although she remains very weak , which I suspect is related to deconditioning. There is no evidence of stroke on MRI. Her phenobarbital was started yesterday. I am restarting her Dilantin today at a lower dose 200 mg a day rather than 300 mg a day as that is the dose she became toxic on. We will follow her levels closely. She did have what appears to be a small seizure yesterday. No generalized tonic-clonic activity noted but she was staring off and was very somnolent afterwards. Although she did, per the nurse, return to her baseline mentally, we will continue to follow her for further seizure activity but I suspect as we restart her medications that she will be controlled. Her baseline mental status is difficult to assess right now. I would like to see her back as an outpatient to evaluate better for underlying dementia. It is likely that she is suffering from some sundowning at night and we will continue to watch this closely. I also suspect that the underlying depression is playing a role in her anorexia and anhedonia, and this is something that will need to be followed as an outpatient as well. I will continue to follow her closely and make further recommendations as necessary. [id number]/[facility] #: [id number] PRECIOUS
--- NOTE | 2017-08-17 16:41 | PN ---
Subjective Date of Service: 08/17/17 Interval History: This is an 82 yo female with encephalopathy, suspected sepsis and FTT, treated for a UTI. Her mental status has slowly improved but her functional status remains quite poor. She had an acute episode yesterday during which she started off for several minutes, which may have represented a seizure. Her son and father expressed some concerns about communication of her care and a formal family meeting was arranged with patient inventory representative, neurology, hospitalist, case management and nurse counseling services manager present. Patient's son expressed satisfaction with the meeting. Objective Active Medications: Acetaminophen (Tylenol Supp*) 650 mg [place] Q6H PRN PRN Reason: FEVER/PAIN Last Admin: 08/14/17 22:13 Dose: 650 mg Aspirin (Aspirin Ec Low Dose*) 81 mg PO DAILY [facility] Last Admin: 08/17/17 09:37 Dose: 81 mg Enoxaparin Sodium (Lovenox(*)) 60 mg SUBCUT Q12H [facility] Last Admin: 08/17/17 14:21 Dose: 60 mg Famotidine (Pepcid Iv*) 20 mg IV SLOW PU BID [facility] Last Admin: 08/17/17 09:37 Dose: 20 mg Sodium Chloride (Ns 0.9% 1000 Ml*) 1,000 mls @ 100 mls/hr IV PER RATE [facility] Last Admin: 08/17/17 01:05 Dose: 100 mls/hr Influenza Virus Vaccine (Fluarix *Quad* *) 0.5 ml IM .ONCE ONE Stop: 08/18/17 09:01 Latanoprost (Xalatan 0.005%*) 1 drop BOTH EYES BEDTIME [facility] Last Admin: 08/16/17 21:54 Dose: 1 drop Ondansetron HCl (Zofran Inj*) 4 mg IV Q6H PRN PRN Reason: NAUSEA Phenobarbital (Phenobarbital Liq(*)) 15 mg PO TID [facility] Last Admin: 08/17/17 14:21 Dose: 15 mg Phenytoin Sodium (Dilantin Cap(*)) 100 mg PO BID [facility] Last Admin: 08/17/17 09:37 Dose: 100 mg Vital Signs: Temp Pulse Resp BP Pulse Ox 97.4 F 96 16 135/53 98 08/17/17 12:02 08/17/17 12:02 08/17/17 16:21 08/17/17 12:02 08/17/17 12:02 Oxygen Devices in Use Now: None Appearance: Elderly female who is sleeping during exam. Son present Respiratory: Symmetrical Chest Expansion and Respiratory Effort, Clear to Auscultation Cardiovascular: NL Sounds; No Murmurs; No JVD, RRR Extremities: No Edema Skin: No Rash or Ulcers Neurological: - - sleeping, orientation not assessed Result Diagrams: 08/14/17 08:26 08/14/17 11:45 Additional Lab and Data: . Microbiology and Other Data: Microbiology 08/13/17 10:31 Blood Culture - Preliminary Blood Venous No Growth Day 1 Diagnostic Imaging: MRI brain - chronic white matter changes, no acute findings Assess/Plan/Problems-Billing Assessment: This is an 81 yo female with h/o prior CVA and sz d/o who presents with AMS after progressive decline over the last several months with poor oral intake due to symptoms of hiatal hernia and then complications after surgery with some suspicion for UTI with sepsis on admission but likely multifactorial causes of toxic encephalopathy including toxic phenytoin and phenobarbital levels. She has been noted to have DVTs to bilateral LEs, extensive and present on arrival. - Patient Problems (1) Encephalopathy Comment: No significant recent changes, remains weak Likely acute toxic encephalopathy secondary to sepsis, dehydration and complicated by phenobarbital and phenytoin toxicity. No acute findings on CT of the brain, EEG or MRI Appreciate neurology consulation (2) Sepsis Comment: Afebrile. Septic on admission secondary to UTI. Mentation improved with abx and IVF. Completed 3 day course of ceftriaxone. (3) DVT (deep venous thrombosis) Comment: Continue lovenox. Will consider switching to NOAC when patient more stable. (4) Failure to thrive Comment: Patient is now tolerating soft foods, but still low volumes Nutritional status has been poor for several months Unsure of how much weight she has lost. Evidence of some muscle wasting. Pre-albumin 14 Will benefit from AYAZ when medically stable (5) UTI (urinary tract infection) Comment: Urine culture shows no growth. Given symptoms and positive UA treated with ceftriaxone x 3 days with noted improvement in mental status (6) Seizure disorder Comment: Concern for seizure yesterday Reviewed with Dr Figueora Phenobarb and Dilantin held due to toxicity, now resumed with therapeutic ranges per Dr Figueroa's recommendations EEG on admission showed slowing only, no epileptiform discharges. (7) Seroma Comment: s/p hiatal hernia repair at [facility] end of May. Post-operative seroma identified on CT at GE junction. No evidence of esophageal obstruction based on imaging (8) Full code status (9) DVT prophylaxis Comment: - Lovenox. Status and Disposition: Inpatient. Anticipate dc to [facility] in 1-2d. Family in agreement with plan. Counseling and/or Coordination of Care Minutes: 60 min, >50% spent with patient and her family
[2017-08-17 16:47] LABS: Free Phenytoin Level 4.4 mcg/mL (1.0 - 2.0)
[2017-08-17] MEDS: Latanoprost 0.005%* 2.5 ml BTL BOTH EYES SCH (21:42)
[2017-08-18 06:10] LABS: BUN/Creatinine Ratio 26.9 (8-20); Calcium 8.1 mg/dL (8.6-10.3); EGFR African American 323.9 (>60); EGFR Non-African American 251.9 (>60)
[2017-08-18 06:21] LABS: Potassium 2.7 mmol/L (3.5-5.0)
[2017-08-18] MEDS: Enoxaparin(*) 60 MG/0.6 ML SYR SUBCUT SCH ×2 (07:01→16:19)
[2017-08-18] MEDS ORDERED: Magnesium Sulf 4 GM/100 ML IV* 4,000 MG/100 ML BAG IVPB ONE (07:25)
[2017-08-18] MEDS: KCL 20 MEQ/100 ML IVPREMIX* 20 MEQ/100 ML BAG IV SCH ×3 (07:37→23:29)
[2017-08-18] MEDS ORDERED: Influenza VAC *QUAD* 2017-18* 0.5 ML SYRINGE IM ONE (09:00)
[2017-08-18] MEDS: Aspirin EC Low Dose* 81 MG TAB.EC PO SCH (10:45)
[2017-08-18] MEDS: Phenytoin CAP(*) 100 MG CAP.ER PO SCH ×2 (10:45→21:33)
[2017-08-18] MEDS: Famotidine IV* 10 MG/ML 2 ML (20 mg) IV SLOW PU SCH ×2 (10:46→21:33)
[2017-08-18] MEDS: PHENobarbital LIQ(*) 30 MG/7.5 ML UDC PO SCH ×3 (10:48→21:32)
--- NOTE | 2017-08-18 11:45 | PN ---
Subjective Date of Service: 08/18/17 Interval History: Patient offers no new complaints. She is fatigued, but alert and denies pain or nausea. Objective Active Medications: Acetaminophen (Tylenol Supp*) 650 mg MN Q6H PRN PRN Reason: FEVER/PAIN Last Admin: 08/14/17 22:13 Dose: 650 mg Aspirin (Aspirin Ec Low Dose*) 81 mg PO DAILY [facility] Last Admin: 08/18/17 10:45 Dose: 81 mg Enoxaparin Sodium (Lovenox(*)) 60 mg SUBCUT Q12H [facility] Last Admin: 08/18/17 07:01 Dose: 60 mg Famotidine (Pepcid Iv*) 20 mg IV SLOW PU BID [facility] Last Admin: 08/18/17 10:46 Dose: 20 mg Sodium Chloride (Ns 0.9% 1000 Ml*) 1,000 mls @ 100 mls/hr IV PER RATE [facility] Last Admin: 08/17/17 22:39 Dose: 100 mls/hr Potassium Chloride (Potassium Chloride 20 Meq/100 Ml Ivpremix*) 20 meq in 100 mls @ 50 mls/hr IV Q2H [facility] Stop: 08/18/17 12:59 Last Admin: 08/18/17 07:37 Dose: 50 mls/hr Latanoprost (Xalatan 0.005%*) 1 drop BOTH EYES BEDTIME [facility] Last Admin: 08/17/17 21:42 Dose: 1 drop Ondansetron HCl (Zofran Inj*) 4 mg IV Q6H PRN PRN Reason: NAUSEA Phenobarbital (Phenobarbital Liq(*)) 15 mg PO TID [facility] Last Admin: 08/18/17 10:48 Dose: 15 mg Phenytoin Sodium (Dilantin Cap(*)) 100 mg PO BID [facility] Last Admin: 08/18/17 10:45 Dose: 100 mg Vital Signs: Temp Pulse Resp BP Pulse Ox 98.0 F 92 16 135/59 97 08/18/17 07:38 08/18/17 07:38 08/18/17 10:48 08/18/17 07:38 08/18/17 07:38 Oxygen Devices in Use Now: None Appearance: Elderly female who awakens easily to voice and able to carry a basic conversation Respiratory: Symmetrical Chest Expansion and Respiratory Effort, Clear to Auscultation Cardiovascular: NL Sounds; No Murmurs; No JVD, RRR Abdominal: NL Sounds; No Tenderness; No Distention Extremities: - - 1+ LE edema Skin: No Rash or Ulcers Neurological: - - alert, no obvious confusion, lethargic Result Diagrams: 08/14/17 08:26 08/18/17 05:41 Additional Lab and Data: . Microbiology and Other Data: Microbiology 08/13/17 10:31 Blood Culture - Preliminary Blood Venous No Growth Day 1 Diagnostic Imaging: MRI brain - chronic white matter changes, no acute findings Assess/Plan/Problems-Billing Assessment: This is an 81 yo female with h/o prior CVA and sz d/o who presents with AMS after progressive decline over the last several months with poor oral intake due to symptoms of hiatal hernia and then complications after surgery with some suspicion for UTI with sepsis on admission but likely multifactorial causes of toxic encephalopathy including toxic phenytoin and phenobarbital levels. She has been noted to have DVTs to bilateral LEs, extensive and present on arrival. - Patient Problems (1) Encephalopathy Comment: No significant recent changes, remains weak Likely acute toxic encephalopathy secondary to sepsis, dehydration and complicated by phenobarbital and phenytoin toxicity. No acute findings on CT of the brain, EEG or MRI Appreciate neurology consulation (2) Hypokalemia Comment: Replete IV with Mag Cont to monitor (3) Sepsis Comment: Afebrile. Septic on admission secondary to UTI. Mentation improved with abx and IVF. Completed 3 day course of ceftriaxone. (4) DVT (deep venous thrombosis) Comment: Continue lovenox. Will switch to NOAC with dc to swing (5) Failure to thrive Comment: Patient is now tolerating soft foods, but still low volumes Nutritional status has been poor for several months Unsure of how much weight she has lost. Evidence of some muscle wasting. Pre-albumin 14 Will benefit from AYAZ when medically stable (6) UTI (urinary tract infection) Comment: Urine culture shows no growth. Given symptoms and positive UA treated with ceftriaxone x 3 days with noted improvement in mental status (7) Seizure disorder Comment: Concern for seizure 08/[address] Figueroa Phenobarb and Dilantin initially held due to toxicity, now resumed with therapeutic ranges per Dr Figueroa's recommendations EEG on admission showed slowing only, no epileptiform discharges. Cont to monitor daily Dilantin and phenobarb levels (8) Seroma Comment: s/p hiatal hernia repair at [facility] end of May. Post-operative seroma identified on CT at GE junction. No evidence of esophageal obstruction based on imaging (9) Full code status (10) DVT prophylaxis Comment: - Lovenox. Status and Disposition: Inpatient. Anticipate dc to [facility] tomorrow. Family in agreement with plan.
[2017-08-18 13:21] LABS: BUN/Creatinine Ratio 28.6 (8-20); Calcium 7.7 mg/dL (8.6-10.3); EGFR African American 414.4 (>60); EGFR Non-African American 322.2 (>60); Magnesium 2.2 mg/dL (1.9-2.7); Potassium 2.9 mmol/L (3.5-5.0)
[2017-08-18] MEDS ORDERED: KCL 20 MEQ/100 ML IVPREMIX* 20 MEQ/100 ML BAG ONE (15:25)
[2017-08-18] MEDS: Collagenase 250 MG/GM OINT* 30 GM TOPICAL SCH (16:20)
[2017-08-18 16:55] LABS: Free Phenytoin Level 3.3 mcg/mL (1.0 - 2.0)
[2017-08-18] MEDS: NS 0.9% 1000 ML* 1,000 ML IV SCH (21:03)
[2017-08-18] MEDS: Latanoprost 0.005%* 2.5 ml BTL BOTH EYES SCH (21:43)
[2017-08-19] MEDS ORDERED: Enoxaparin(*) 60 MG/0.6 ML SYR SUBCUT SCH (06:00)
[2017-08-19 06:02] LABS: Hematocrit 33 % (35-47); Hemoglobin 11.3 g/dl (12.0-16.0); Mean Corpuscular HGB Conc 34 g/dl (31-36); Mean Corpuscular Hemoglobin 32 pg (27-31); Mean Corpuscular Volume 94 fL (80-97); Mean Platelet Volume 7 um3 (7.4-10.4); Red Blood Count 3.55 10^6/ul (4.0-5.4); Red Cell Distribution Width 18 % (10.5-15); White Blood Count 7.1 10^3/ul (3.5-10.8)
[2017-08-19 06:16] LABS: BUN/Creatinine Ratio 17.4 (8-20); Calcium 7.7 mg/dL (8.6-10.3); EGFR African American 373.1 (>60); EGFR Non-African American 290.1 (>60); Magnesium 1.9 mg/dL (1.9-2.7); Potassium 3.4 mmol/L (3.5-5.0)
[2017-08-19 06:20] LABS: Phenytoin 10.9 mcg/mL (10-20)
[2017-08-19] MEDS: Enoxaparin(*) 60 MG/0.6 ML SYR SUBCUT SCH (07:22)
--- NOTE | 2017-08-19 08:28 | PN ---
PROGRESS NOTE: DATE OF PROGRESS NOTE: 08/18/17 LOCATION: She is currently in room 417, bed 1. SUBJECTIVE: The patient is doing well. Overnight, she had no issues. There has been no further seizure activity reported. I did speak with the nurse this morning who states that she is doing well, she worked with physical therapy, she is not having any complaints. Overnight, she was lethargic when awakened but denied any pain. She was able to get up and take her medications without problems swallowing. She is more interactive this morning and more talkative with me and looks better. OBJECTIVE: Temperature is 98.0, pulse rate of 92, respiratory rate of 13, O2 of 97%, blood pressure is 129/56 to 115/52 to 135/59. In general, she is a well - developed although thin female in no acute distress, sitting in her hospital bed. HEENT: She is normocephalic, atraumatic. Her sclerae are anicteric and mucous membranes are slightly dry. Neck is supple. No thyromegaly. No carotid bruits. Chest: Clear to auscultation bilaterally. Cardiovascular is regular rate and rhythm. Abdomen is nontender. Extremities: She has 1+ edema in the feet and shins bilaterally. Skin is warm and dry. Neurologic Exam: She is awake, alert. She is oriented to person, to [facility]. She did not know the year, the day, the day of the week. Cranial Nerves: Pupils are equal, round and reactive to light. Extraocular muscles are intact. She has no nystagmus appreciated. Visual olguin appear full. Tongue is midline. Her sensation is intact. Palate raises symmetrically. Motor Exam: She is spontaneously moving all extremities. She is able to move antigravity but she is very weak 4-/5 throughout. She has no obvious drift apparent. She does follow commands. DTRs were 1+ in the patella bilaterally, absent ankles, and 2 + at the biceps. Could not complete finger-to- nose. Gait was not tested. There are no tremors noted. DIAGNOSTIC STUDIES/LAB DATA: Lab work includes a phenobarbital this morning of 22.5 up slightly from yesterday of 21.9, potassium of 2.7 this morning, sodium of 134, creatinine of 0.26, calcium of 8.1. ASSESSMENT AND PLAN: Ms. Varela is an 82-year-old female who was admitted with failure to thrive, has a history of seizures and had had none for years but when she was admitted she was severely toxic on her phenobarb, and phenytoin medication was stopped and she may have had a small seizure 2 days ago but has had none since. We have since restarted her phenobarb and Dilantin as her levels have normalized, we are following her levels daily. We had a good family conference with her family yesterday and discussed the plan of care and the plan is to transfer her to a stepdown rehab facility in the near future once she is stable. Her potassium is low this morning and is being replaced. She is working with physical therapy. Overall, she is doing better. She appears better. We will adjust her medications as necessary and she will need close monitoring of her levels as an outpatient. I will be happy to follow her as an outpatient as well. [id number]/[facility] #: [id number] MTDD
[2017-08-19] MEDS: Phenytoin CAP(*) 100 MG CAP.ER PO SCH ×2 (09:40→14:30)
[2017-08-19] MEDS: Aspirin EC Low Dose* 81 MG TAB.EC PO SCH (09:40)
[2017-08-19] MEDS: PHENobarbital LIQ(*) 30 MG/7.5 ML UDC PO SCH ×2 (09:41→14:30)
[2017-08-19] MEDS: Famotidine IV* 10 MG/ML 2 ML (20 mg) IV SLOW PU SCH (09:41)
[2017-08-19] MEDS: Collagenase 250 MG/GM OINT* 30 GM TOPICAL SCH (11:05)
[2017-08-19 11:42] VITALS: BP 112/45
--- NOTE | 2017-08-19 12:58 | DS ---
CC: [facility]; Dr. Gaxiola; Dr. Figueroa* DATE OF ADMISSION: 08/12/2017. DATE OF DISCHARGE: 08/19/2017. PRIMARY CARE PHYSICIAN: Dr. Gaxiola. CONSULTING NEUROLOGIST: Dr. Figueroa. DISCHARGE PROVIDER: MELANY Clinton. SUPERVISING PHYSICIAN: Dr. Mary Mitchell* (dictated by MELANY Clinton). PRIMARY DISCHARGE DIAGNOSES: 1. Acute encephalopathy likely secondary to sepsis secondary to urinary tract infection and Dilantin toxicity. 2. Sepsis secondary to UTI. 3. Dilantin toxicity. 4. Failure to thrive. 5. Bilateral DVT's. 6. Hypokalemia. SECONDARY DISCHARGE DIAGNOSES: 1. Seizure disorder treated with Dilantin and Phenobarbital. 2. Seroma at the GE junction, status post hiatal hernia repair end may at [facility]. 3. Decubitus ulcer with instructions to apply Santyl daily and cover with gauze. DISCHARGE MEDICATIONS: 1. Eliquis 2.5 mg p.o. b.i.d. 2. Aspirin 81 mg p.o. daily. 3. Clotrimazole Nando 10 mg p.o. 5 times daily. 4. Xalatan eye drops 0.005% solution, one drop in both eyes at bedtime. 5. Multivitamin one tablet p.o. daily. 6. Jessie-3 fatty acids 1000 mg p.o. daily. 7. Zofran 4 mg p.o. q.4 hours as needed for nausea. 8. Protonix 40 mg p.o. daily. 9. Phenobarbital 16.2 mg p.o. t.i.d. 10. Dilantin 100 mg p.o. t.i.d. 11. Compazine 10 mg p.o. q.6 hours as needed for nausea. HOSPITAL IMAGIN. CT of the abdomen and pelvis, 08/12/2017, shows an indeterminant focus of nodularity at the right lung base, small left-sided effusion, status post hysterectomy, and a localized fluid collection at the level of the diaphragmatic hiatus perhaps related to recent intervention as indicated in the history. 2. CT of the brain, 08/12/2017, shows atrophy with evidence of prior vascular insult, but no acute findings. 3. Chest x-ray, 08/12/2017, shows no acute disease. 4. CT of the abdomen and pelvis with contrast, 08/12/2017, demonstrates no evidence of extravasation of p.o. contrast, there is a small localized fluid collection at the level of the GE junction to the right of the esophagus measuring 3.5 x 1.8 cm likely representing a seroma. 5. Chest x-ray, 08/12/2017, shows NG tube placement appropriate for introduction of dye. 6. Bilateral lower extremity venous Doppler, 08/13/2017, demonstrates extensive bilateral DVT's. 7. MRI of the brain, 08/16/2017, shows diffuse involutional change and changes consistent with chronic small vessel ischemia. 8. EEG, 08/13/2017, shows diffuse slowing with minimal change with clinical stimulation likely secondary to encephalopathy. HOSPITAL COURSE: This is an 82-year-old female with a history of seizure disorder who underwent a hiatal hernia repair at [facility] the first portion of May. The patient has had multiple complications leading up to and after the procedure and was brought to our emergency department with concern for altered mental status and poor feeding. The history is that the patient had frequent vomiting and unable to tolerate any solid foods for at least six weeks prior to her hiatal hernia repair. These symptoms were related to the hiatal hernia, but after the repair she remained only tolerant of clear liquids for quite some time. Her postoperative course was complicated by thrush and readmission at [facility]. She was discharged to [facility] and her family took her home as they were not pleased with the care that she was receiving. She was able to tolerate soft foods for a short period of time, but then her mental status began to decline and she was no longer taking anything by mouth and was excessively sedated. She was seen by her primary care provider at one point who checked her Dilantin and Phenobarb levels, both of which were noted to be elevated and recommendations to reduce her home doses were made approximately one week prior to her hospitalization. When the patient reached our emergency department, initial labs demonstrated a mild leukocytosis with a white blood cell count of 12,500. Chemistries showed mild transaminitis, significantly elevated CRP at 150, lactic acid of 1.7, no significant kidney injury noted. Her urine analysis was positive for blood, leuk esterase, and bacteria. She was afebrile, but tachycardic and normotensive. The patient was subsequently treated for presumed sepsis secondary to a urinary tract infection and empirically started on Ceftriaxone. Serum Phenobarb and Dilantin levels were also checked and returned in toxic levels. Her Dilantin level at the time of admission was 37.6 and Phenobarb at 36.1. Her antiepileptic medications were subsequently held. She received IV fluids along with antibiotics. On initial presentation, she was unresponsive and after several days her mental status improved to the point that she was able to cooperate with a swallow evaluation and was able to resume oral intake again. The patient experienced what was likely a seizure episode on 08/16/2017 where she had a blank stare for several minutes, but returned back to her normal mental state rather quickly, but did not have any significant convulsive activity. The patient's Dilantin and Phenobarbital were resumed on 08/17/2017 when her Dilantin and Phenobarb levels returned to therapeutic level and she did not have any additional seizure activity noted. Neurologist Dr. Billy Figueroa was intermittently involved throughout her hospital stay. At the time of admission, the patient underwent EEG to evaluate for status for subclinical seizure. EEG was nonfocal, but did represent a diffuse slowing consistent with encephalopathy. Blood cultures remained negative and her urine culture actually did not show any growth, but the patient did receive a total of three days of Ceftriaxone for presumed urinary tract infection based on her acute presentation and positive response to antibiotics. Despite improvement in her mental status, the patient remained extremely weak and lethargic and was only able to transfer via Sujit. Her nutritional status has been poor for several months and her functional status has been declining along with that. Because of her severe deconditioning, recommendation was made to pursue subacute rehab. DISPOSITION AND FOLLOW-UP PLAN: The patient is being discharged to [facility] for subacute rehab. Recommendation per Neurology is to monitor her Dilantin and Phenobarb levels on a daily basis with goals for her Dilantin level to maintain between 15 and 20 and her Phenobarb between [address] Figueroa would like to see Ms. Varela in approximately four weeks' time and is available to answer questions about dosing of her medication as well. Also, recommend a follow-up basic metabolic panel in two to three days to ensure full resolution of her hypokalemia for which she was treated as well. MELANY CLINTON [id number]/[facility] #: [id number] [facility]IC CENTERChery
[2017-08-19 22:30] LABS: Free Phenytoin Level 2.2 mcg/mL (1.0 - 2.0)
== END 2017-08-19 14:15 | DRG 871 ==
LOC: ED 15:27 → SSU 23:51 → MED 08-17 16:37
PROVIDERS: ADMIT Hospitalist; ATTEND Internal Medicine
PROC: 4A00X4Z Measurement of Central Nervous Electrical Activity, External Approach (ICD-10-PCS; principal; 2017-08-13)
DX: A41.9 Sepsis, unspecified organism (principal); R40.2342 Coma scale, best motor response, flexion withdrawal, at arrival to emergency department; R40.2212 Coma scale, best verbal response, none, at arrival to emergency department; G92 Toxic encephalopathy; I82.403 Acute embolism and thrombosis of unspecified deep veins of lower extremity, bilateral; I25.3 Aneurysm of heart; E86.0 Dehydration; N39.0 Urinary tract infection, site not specified; K91.873 Postprocedural seroma of a digestive system organ or structure following other procedure; Q21.1 Atrial septal defect; R40.2142 Coma scale, eyes open, spontaneous, at arrival to emergency department; I34.1 Nonrheumatic mitral (valve) prolapse; R62.7 Adult failure to thrive; K21.9 Gastro-esophageal reflux disease without esophagitis; E87.6 Hypokalemia; G40.909 Epilepsy, unspecified, not intractable, without status epilepticus; M81.0 Age-related osteoporosis without current pathological fracture; L89.319 Pressure ulcer of right buttock, unspecified stage; L89.329 Pressure ulcer of left buttock, unspecified stage; L89.159 Pressure ulcer of sacral region, unspecified stage; T42.3X5A Adverse effect of barbiturates, initial encounter; T42.0X5A Adverse effect of hydantoin derivatives, initial encounter; R91.1 Solitary pulmonary nodule; Z96.651 Presence of right artificial knee joint; Z90.710 Acquired absence of both cervix and uterus; Z86.19 Personal history of other infectious and parasitic diseases; Z82.49 Family history of ischemic heart disease and other diseases of the circulatory system; Z91.041 Radiographic dye allergy status; Z88.8 Allergy status to other drugs, medicaments and biological substances; Z87.891 Personal history of nicotine dependence; Z86.73 Personal history of transient ischemic attack (TIA), and cerebral infarction without residual deficits; Z82.3 Family history of stroke; Z79.82 Long term (current) use of aspirin; Z79.01 Long term (current) use of anticoagulants; Y92.89 Other specified places as the place of occurrence of the external cause
CPT/HCPCS: 36415; 70450; 70551; 71010; 74176; 80048; 80053; 80076; 80184; 80185; 80186; 80320; 80329; 81003; 81015; 82085; 82140; 82550; 82553; 82607; 82746; 83605; 83690; 83735; 83874; 83880; 84134; 84443; 84484; 85025; 85610; 85730; 86140; 87040; 87070; 87077; 87086; 87186; 87205; 87640; 87641; 90686; 93005; 93970; 95819; 97530; A9270-GY; G0480; J0696; J1650; J3475; J3480

== ENCOUNTER 2017-08-30 16:42 | Inpatient (IN) | payer MEDICARE ==
[2017-08-30] MEDS: D5NS 0.9% 1000 ML BAG* 1,000 ML IV SCH (19:15)
[2017-08-30] MEDS ORDERED: Phenytoin IV(*) 100 MG in NS 0.9% 50 ML* 100 ML IVPB SCH (20:00)
[2017-08-30] MEDS: Phenytoin IV(*) 100 MG in NS 0.9% 50 ML* 18 ML IVPB SCH (20:06)
[2017-08-30] MEDS: Enoxaparin(*) 80 MG/0.8 ML SYR SUBCUT SCH (20:10)
[2017-08-30] MEDS: Latanoprost 0.005%* 2.5 ml BTL BOTH EYES SCH (20:19)
[2017-08-30] MEDS ORDERED: PHENobarbital SODIUM(*) 65 MG/ML VIAL IV SCH (21:00)
[2017-08-30 22:08] LABS: Hematocrit 31 % (35-47); Hemoglobin 10.6 g/dl (12.0-16.0); Mean Corpuscular HGB Conc 34 g/dl (31-36); Mean Corpuscular Hemoglobin 33 pg (27-31); Mean Corpuscular Volume 97 fL (80-97); Mean Platelet Volume 6 um3 (7.4-10.4); Red Blood Count 3.19 10^6/ul (4.0-5.4); Red Cell Distribution Width 17 % (10.5-15); White Blood Count 7.4 10^3/ul (3.5-10.8)
[2017-08-30 22:22] LABS: Albumin 2.5 g/dL (3.2-5.2); BUN/Creatinine Ratio 5.9 (8-20); Calcium 8.2 mg/dL (8.6-10.3); EGFR African American 237.7 (>60); EGFR Non-African American 184.8 (>60); Globulin 2.5 g/dL (2-4); Magnesium 1.5 mg/dL (1.9-2.7); Potassium 3.8 mmol/L (3.5-5.0); Total Bilirubin 0.4 mg/dL (0.2-1.0)
[2017-08-30 23:14] LABS: Urine Bilirubin Negative (Negative); Urine Glucose Negative (Negative); Urine Nitrite Negative (Negative)
--- NOTE | 2017-08-31 00:33 | HP ---
CC: Dr. Mattson, Dr. Gaxiola, [facility] * HISTORY AND PHYSICAL: DATE OF ADMISSION: 08/30/17 Date of admission and transfer from [facility] rehabilitation to [facility] for acute inpatient evaluation 08/30/17. CHIEF COMPLAINT: Low p.o. intake. HISTORY OF PRESENT ILLNESS: Molly Varela is an 82-year-old female with a history of laparoscopic Chris fundoplication of a paraesophageal hernia on who has had issues with failure to thrive ever since. She was apparently rehospitalized at [facility] and was discovered to have seroma in the postoperative area. The patient's son stated that during the hospital stay , the patient was treated with "IV antibiotics" and the problems with swallowing resolved spontaneously. Then, she went to [facility] where she was treated for postoperative esophageal candidiasis. The patient was discharged from our facility on 08/20/17 after she came in with UTI and Dilantin toxicity and dehydration. During that time, she was seen by Neurology as well as Dr. Weldon. At that point, she had a CAT scan of the paraesophageal hiatal hernia and Dr. Weldon commented on it that is a normal appearance of a postoperative Chris fundoplication. When she went to [facility] on 08/18/17, she had been doing rather well, but the staff was noticing that the patient had lower, lower p.o. intake. She also developed urinary retention and she had to have a Boateng inserted. Eventually, she had an esophagogram obtained on 08/28/17 that showed postoperative changes, probable edematous changes in the distal thoracic esophagus near the gastroesophageal junction with a layer of transesophageal contrast, but without benjamín obstruction as well as tertiary peristalsis, which may be related to mild dysmotility superimposed upon presbyesophagus. An NG was attempted to be inserted, but it was getting "stuck" at the GE junction. The patient also had a portable chest x-ray obtained on 08/28/17, which showed small bilateral pleural effusion, question of CHF pattern, and enteric tube side hole above the GE junction. PAST MEDICAL HISTORY: 1. Chris fundoplication of a paraesophageal hernia as mentioned above. 2. History of CVA in 2001. 3. History of seizure disorder. 4. History of atrial septal aneurysm and patent foramen ovale. 5. History of mitral valve prolapse. 6. Osteoporosis. 7. Sacral decubitus ulcer. 8. History of bilateral DVTs. 9. Hypokalemia. 10. Osteoporosis. MEDICATIONS: Include: 1. Multivitamin 1 tablet day. 2. Bradford-3 fatty acids 1 capsule daily. 3. Potassium chloride 2 mEq daily. The patient received it for 3 days during her hospital stay and currently is off it. 4. Aspirin 81 mg daily. 5. Calcium carbonate with vitamin D 1 tablet daily. 6. Eliquis 2.5 mg b.i.d. 7. Protonix 40 mg daily. 8. Xalatan eye drops 1 drop both eyes at bedtime. 9. Colace 100 mg b.i.d. 10. Dilantin 100 mg 3 times a day. 11. Ensure 1 can 3 times a day. 12. Phenobarbital 16.2 mg 1 tablet 3 times a day. 13. Reglan 5 mg 3 times a day for nausea and vomiting. 14. Nystatin suspension 5 mL 4 times a day. 15. Clotrimazole nasrin 1 nasrin by mouth 5 times a day for yeast. That was discontinued on 08/27/17. Please note that the above mentioned nystatin suspension was started on 08/27/17. 16. Compazine tablet 10 mg on a p.r.n. basis. 17. Dulcolax suppository on a p.r.n. basis. 18. Milk of magnesia on a p.r.n. basis. 19. Prune juice on a p.r.n. basis. 20. Tylenol on a p.r.n. basis. 21. Zofran on a p.r.n. basis. ALLERGIES: The patient's allergies include IODINE DYE CONTRAST and ALENDRONATE. FAMILY HISTORY: Mother with CVAs. Father of heart disease in his 60s. SOCIAL HISTORY: The patient denies any tobacco, alcohol, or drug use. She is a resident of [facility]. She is a full code. Her surrogate decision maker is her son. Her is living with their son right now. REVIEW OF SYSTEMS: Please see history of present illness. The patient is rather a poor historian, very forgetful. She was unable to tell me how many days she was in [facility] and she was not aware that she has a bedsore on her bottom. She denies any pain. She stated that she just does not feel like eating. She denies feeling nausea. She denies any vomiting. All the remaining 14 systems were reviewed with the patient and were otherwise negative. Please note that the patient has an indwelling Boateng in place. PHYSICAL EXAMINATION GENERAL: The patient is a pleasant 82-year-old female who is in not in acute distress. The patient is alert and oriented x2. VITAL SIGNS: Blood pressure of 132/37, heart rate of 88 and regular, respiratory rate 16, oxygen saturation 98% on room air, temperature 98.9. HEENT: Head is atraumatic and normocephalic. Eyes, pupils are equal and reactive to light and accommodation. Oropharynx clear. Tongue with white exudate. Mucosa very dry. NECK: Supple. No JVD, no bruits bilaterally. RESPIRATORY: Clear to auscultation bilaterally. CARDIOVASCULAR: Regular rate and rhythm. No murmur. ABDOMEN: Soft and nontender. Bowel sounds present in all 4 quadrants. EXTREMITIES: Bilateral pedal edema that is pitting. Left side is 2+. Right side is +1. SKIN: On evaluation of the skin, the patient has sacral decubitus at 3 cm in width and approximately 5 cm in length. It is deep at least 0.5 to 1 cm. The bottom was covered with slough, but stage is at least 3. There are no rashes appreciated on evaluation. NEURO EVALUATION: Speech is clear. Cranial nerves II through XII are grossly intact. Motor strength is 5/5 in bilateral upper extremities and 4+/5 in bilateral lower extremities. PSYCHIATRIC EVALUATION: The patient is very withdrawn, soft spoken, poorly interactive female. LABORATORY DATA: Most recent were obtained at [facility] on 08/28/17 and those show white blood cell count of 8.2, hemoglobin of 10.9, hematocrit of 32, and platelets of 358. The patient's EKG obtained on 08/21/17 showed sinus tachycardia with heart rate of 93 beats per minute with no specific ST changes. No significant ST elevation. On 08/28/17, sodium of 134, potassium 3.7, chloride 98, carbon dioxide 29, BUN 5 , creatinine 0.4. Liver function tests were unremarkable. Random glucose of 109. Total protein of 5.5, albumin of 3.2. On 08/28/17, phenytoin level of 5.4, phenobarbital of 21.7. Urinalysis on 08/28/17 showed +3 blood, +2 esterase, 5 to 10 red blood cells, 15 to 20 white blood cells, +1 bacteria, negative for nitrite. Esophagogram, as mentioned above, was mentioned above in history of present illness. Chest x-ray was also mentioned in history of present illness. ASSESSMENT AND PLAN: 1. New obstruction of gastroesophageal junction according to the patient's esophagogram. At this point, the patient was going to be placed on sips of clear and intravenous fluids with dextrose. She is going to be evaluated by Dr. Mattson in the morning in regards of further management. She is also going to be placed on Protonix intravenously when on very limited diet. 2. In regards to the patient's seizure disorder, the patient's phenobarbital and Dilantin are going to be converted to IV while she is on very limited diet. 3. In regards to the patient's history of deep venous thrombosis and anticoagulation, Eliquis is going to be switched to Lovenox during the patient' s hospital stay. 4. For the patient's sacral decubitus, wound care is going to be provided and I will ask nurse to see the patient for evaluation. 5. In regards to abnormal urinalysis, the patient has a Boateng. We will obtain another urinalysis and cultures and follow. At this point, the patient does not appear to be toxic and does not meet criteria for sepsis. 6. The patient's code status was discussed with the patients' son, who requested a full code. 7. In regards to history of esophageal candidiasis, for the time being, we will withhold p.o. treatment and we will await Dr. Mattson's recommendation. TIME SPENT: Approximately 65 minutes were spent on admission of this patient, more than half that time was spent [id number] with the patient and the patient 's family during the interview and physical exam. [id number]/[facility] #: [id number] [facility] SYSTEMChery
[2017-08-31] MEDS: Phenytoin IV(*) 100 MG in NS 0.9% 50 ML* 18 ML IVPB SCH ×3 (04:34→21:32)
[2017-08-31] MEDS ORDERED: Collagenase 250 MG/GM OINT* 30 GM TOPICAL SCH (05:00)
[2017-08-31] MEDS: D5NS 0.9% 1000 ML BAG* 1,000 ML IV SCH (05:46)
[2017-08-31] MEDS ORDERED: Magnesium Oxide TAB* 400 MG PO ONE (08:25)
[2017-08-31] MEDS ORDERED: Magnesium Sulfate 2 GM IV* 2 GM/50 ML BAG IVPB ONE (08:40)
[2017-08-31] MEDS: Pantoprazole IV* 40 MG IV SCH (09:28)
[2017-08-31] MEDS: PHENobarbital SODIUM(*) 65 MG/ML VIAL IV SCH ×3 (09:28→20:46)
[2017-08-31] MEDS: Enoxaparin(*) 80 MG/0.8 ML SYR SUBCUT SCH ×2 (09:28→20:45)
[2017-08-31] MEDS ORDERED: Meperidine SYRINGE* 50 MG/ML ONE ×2 (16:42→16:51)
[2017-08-31] MEDS ORDERED: Midazolam* 1 MG/ML 10 ML VIAL (10 MG) ONE ×2 (16:42→16:51)
--- NOTE | 2017-08-31 18:14 | PN ---
Subjective Date of Service: 08/31/17 Interval History: Has not tried to eat anything. She denies sore throat or trouble with food going down or getting stuck. The symptom is described as ability to swallow, but then after approximately one minute, she vomits undigested food back up. No pain is associated. She also reports poor appetite and disinterest in food. No fevers, chills, nausea otherwise. She has lost about 30 pounds since the Spring, but this current symptom has only been going on since last . Prior to that, she and her son felt that she was getting better. Family History: Unchanged from Admission Social History: Unchanged from Admission Past Medical History: Unchanged from Admission Objective Active Medications: Collagenase (Santyl 250 Mg/Gm Oint*) 1 applic TOPICAL .SEE INSTRUCTIONS [facility] Enoxaparin Sodium (Lovenox(*)) 70 mg SUBCUT Q12H [facility] Last Admin: 08/31/17 09:28 Dose: 70 mg Dextrose/Sodium Chloride (D5ns 0.9% 1000 Ml Bag*) 1,000 mls @ 100 mls/hr IV PER RATE [facility] Last Admin: 08/31/17 05:46 Dose: 100 mls/hr Phenytoin Sodium 100 mg/ (Sodium Chloride) 20 mls @ 80 mls/hr IVPB Q8H [facility] Last Admin: 08/31/17 13:26 Dose: 80 mls/hr Latanoprost (Xalatan 0.005%*) 1 drop BOTH EYES BEDTIME [facility] Last Admin: 08/30/17 20:19 Dose: 1 drop Morphine Sulfate (Morphine Inj (Syringe)*) 1 mg IV Q4H PRN PRN Reason: PAIN Pantoprazole Sodium (Protonix Iv*) 40 mg IV DAILY [facility] Last Admin: 08/31/17 09:28 Dose: 40 mg Phenobarbital (Phenobarbital Iv(*)) 16.25 mg IV TID [facility] Last Admin: 08/31/17 14:46 Dose: 16.25 mg Vital Signs 08/30/17 08/30/17 08/30/17 18:19 18:28 20:00 Temperature 98.9 F 98.9 F Pulse Rate 88 88 Respiratory 14 16 18 Rate Blood Pressure 122/37 122/37 (mmHg) O2 Sat by Pulse 99 98 Oximetry 08/30/17 08/30/17 08/30/17 20:09 21:09 23:41 Temperature 98.1 F Pulse Rate 76 Respiratory 18 18 16 Rate Blood Pressure 119/57 (mmHg) O2 Sat by Pulse 95 Oximetry 08/31/17 08/31/17 08/31/17 03:10 07:49 08:00 Temperature 98.1 F 98.3 F Pulse Rate 75 81 Respiratory 16 18 16 Rate Blood Pressure 135/52 135/59 (mmHg) O2 Sat by Pulse 98 97 Oximetry 08/31/17 08/31/17 08/31/17 09:28 10:28 14:46 Temperature Pulse Rate Respiratory 18 16 16 Rate Blood Pressure (mmHg) O2 Sat by Pulse Oximetry 08/31/17 08/31/17 15:55 17:57 Temperature 98.5 F 98.0 F Pulse Rate 80 87 Respiratory 16 15 Rate Blood Pressure 138/58 111/40 (mmHg) O2 Sat by Pulse 95 97 Oximetry Oxygen Devices in Use Now: None Appearance: alert, well appearing, answers questions appropriately and follows commands Eyes: No Scleral Icterus, PERRLA Ears/Nose/Mouth/Throat: NL Teeth, Lips, Gums, - - dry mucosa Neck: NL Appearance and Movements; NL JVP, Trachea Midline Respiratory: Symmetrical Chest Expansion and Respiratory Effort, Clear to Auscultation Cardiovascular: NL Sounds; No Murmurs; No JVD, - - irregular rhythm Abdominal: NL Sounds; No Tenderness; No Distention, No Hepatosplenomegaly Lymphatic: No Cervical Adenopathy, No Axillary Adenopathy Extremities: - - RLE >LLE Skin: - - sacral decub reported by RN x 2 Result Diagrams: 08/30/17 21:54 08/30/17 21:54 Assess/Plan/Problems-Billing Assessment: 1. Esophageal Erosions seen on endosocpy today with Dr. Mattson. Pill-induced versus infectious? Will follow up biopsy/cultures continue IV protonix; will add carafate and switch her PO meds to elixers and attempt a pureed diet 2. Hypomagnesemia replete IV, likely related to poor po intake 3. CVA asa/statin on hold for now 4. Stage 2 and 3 sacral decubitus ulcers wound care following 5. full code
[2017-08-31] MEDS ORDERED: Phenytoin IV(*) 50 MG/ML 2 ML VIAL (100 MG) ONE (20:28)
[2017-08-31] MEDS: Sucralfate TAB* 1 GM PO SCH (20:46)
[2017-08-31] MEDS: Latanoprost 0.005%* 2.5 ml BTL BOTH EYES SCH (20:47)
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
[2017-09-01] MEDS: Morphine INJ* 2 MG/ML 1 ML SYRINGE (TWO MG - NEW SYRINGE VERSION) IV PRN ×2 (00:04→20:50)
[2017-09-01] MEDS: D5NS 0.9% 1000 ML BAG* 1,000 ML IV SCH (01:26)
[2017-09-01] MEDS ORDERED: Morphine INJ* 2 MG/ML 1 ML SYRINGE (TWO MG - NEW SYRINGE VERSION) IV ONE (02:00)
[2017-09-01] MEDS: Phenytoin IV(*) 100 MG in NS 0.9% 50 ML* 18 ML IVPB SCH ×3 (04:40→21:15)
[2017-09-01 06:20] LABS: Hematocrit 33 % (35-47); Hemoglobin 11.2 g/dl (12.0-16.0); Mean Corpuscular HGB Conc 34 g/dl (31-36); Mean Corpuscular Hemoglobin 33 pg (27-31); Mean Corpuscular Volume 97 fL (80-97); Mean Platelet Volume 7 um3 (7.4-10.4); Red Blood Count 3.38 10^6/ul (4.0-5.4); Red Cell Distribution Width 17 % (10.5-15); White Blood Count 6.7 10^3/ul (3.5-10.8)
[2017-09-01 06:37] LABS: Albumin 2.5 g/dL (3.2-5.2); BUN/Creatinine Ratio 8.3 (8-20); EGFR African American 355.2 (>60); EGFR Non-African American 276.2 (>60); Globulin 2.6 g/dL (2-4); Magnesium 1.8 mg/dL (1.9-2.7); Phosphorus 2.6 mg/dL (2.5-5.0); Potassium 3.3 mmol/L (3.5-5.0); Total Bilirubin 0.5 mg/dL (0.2-1.0); Total Protein 5.1 g/dL (6.4-8.9)
[2017-09-01] MEDS: PHENobarbital SODIUM(*) 65 MG/ML VIAL IV SCH ×3 (08:52→20:46)
[2017-09-01] MEDS: Enoxaparin(*) 80 MG/0.8 ML SYR SUBCUT SCH ×2 (08:52→20:45)
[2017-09-01] MEDS: Pantoprazole IV* 40 MG IV SCH (08:52)
[2017-09-01] MEDS: Sucralfate TAB* 1 GM PO SCH ×4 (08:53→20:47)
--- NOTE | 2017-09-01 11:39 | PRO ---
DATE: 08/31/17 - ROOM #406 REFERRING PHYSICIAN: Jean Gaxiola * PROCEDURE: Upper gastrointestinal endoscopy, dispersal and removal of gastric foreign body masses. INDICATION: This 82-year-old woman has not been eating well. She has had an up and down course since repair of a paraesophageal hernia on 06/25/17. She is on multiple meds and her son wonders whether some of them are not getting through her surgical area. She was admitted and transferred from [facility] yesterday evening. ENDOSCOPIST: Dr. Mattson. MEDICATIONS: Midazolam 4.5, meperidine 12.5. FINDINGS: She is an elderly woman appearing chronically ill in no acute distress. Her respirations are easy. EGD: Larynx - the cords move symmetrically and are without obvious edema. Esophagus - easily entered. The mucosa is normal in the upper and mid esophagus and then there is a lot of retained opaque disintegrating powdery material appearing consistent with medication dispersal. There is some caked material at the EG junction at about 40 and once this was scraped off by sliding maneuvers, an erosion is seen at 9 o'clock orientation, a thin, oval, fairly deep and there is an erosion very superficial on the opposite wall at 3 o 'clock. There is a fair amount of edema for a few centimeter above them. Stomach - large 1 to 3 cm agglomerations of uncertain type. They were big enough to potentially obstruct the pylorus, so they were cut up with a snare and further dispersed. Foreign bodies were then removed. The rugal pattern appeared attenuated and somewhat atrophic. Transillumination and finger indentation was done to assess for a possible PEG placement, and this appeared to be quite satisfactory and technically would be from an anatomic point of view low risk. The pylorus appeared normal. Duodenum - the bulb and second through fourth portions appear normal. IMPRESSION: 1. Status post hiatal hernia repair - the EG junction appeared in proper position. 2. Caustic injury to the EG junction - all pills should be converted to elixirs or to be ground up in apple sauce or equivalent vehicle. 3. Gastric retention - foreign bodies removed. 4. Normal duodenum. [id number]/[facility] #: [id number] [facility]
[2017-09-01] MEDS: NS 0.9% 1000 ML* 1,000 ML IV SCH (13:15)
--- NOTE | 2017-09-01 13:29 | PN ---
Subjective Date of Service: 09/01/17 Interval History: Feeling better this morning, sitting up in bed eating breakfast. She has eaten half of her scrambled eggs and almost a full milkshake. She denies abdominal pain, nausea, vomiting, dysphagia, or odynophagia. Appetite is good. No cough, choking while eating. Family History: Unchanged from Admission Social History: Unchanged from Admission Past Medical History: Unchanged from Admission Objective Active Medications: Collagenase (Santyl 250 Mg/Gm Oint*) 1 applic TOPICAL .SEE INSTRUCTIONS [facility] Enoxaparin Sodium (Lovenox(*)) 70 mg SUBCUT Q12H [facility] Last Admin: 09/01/17 08:52 Dose: 70 mg Phenytoin Sodium 100 mg/ (Sodium Chloride) 20 mls @ 80 mls/hr IVPB Q8H [facility] Last Admin: 09/01/17 13:02 Dose: 80 mls/hr Sodium Chloride (Ns 0.9% 1000 Ml*) 1,000 mls @ 75 mls/hr IV PER RATE [facility] Latanoprost (Xalatan 0.005%*) 1 drop BOTH EYES BEDTIME [facility] Last Admin: 08/31/17 20:47 Dose: 1 drop Morphine Sulfate (Morphine Inj (Syringe)*) 1 mg IV Q4H PRN PRN Reason: PAIN Last Admin: 09/01/17 00:04 Dose: 1 mg Pantoprazole Sodium (Protonix Iv*) 40 mg IV DAILY [facility] Last Admin: 09/01/17 08:52 Dose: 40 mg Phenobarbital (Phenobarbital Iv(*)) 16.25 mg IV TID [facility] Last Admin: 09/01/17 08:52 Dose: 16.25 mg Sucralfate (Carafate*) 1 gm PO QID [facility] Last Admin: 09/01/17 08:53 Dose: 1 gm Vital Signs 08/31/17 08/31/17 08/31/17 14:46 15:46 15:55 Temperature 98.5 F Pulse Rate 80 Respiratory 16 17 16 Rate Blood Pressure 138/58 (mmHg) O2 Sat by Pulse 95 Oximetry 08/31/17 08/31/17 08/31/17 17:57 18:00 18:56 Temperature 98.0 F 98.0 F 97.6 F Pulse Rate 87 87 81 Respiratory 15 15 18 Rate Blood Pressure 111/40 111/40 143/54 (mmHg) O2 Sat by Pulse 97 97 97 Oximetry 08/31/17 08/31/17 08/31/17 19:58 20:00 20:46 Temperature 97.3 F Pulse Rate 86 Respiratory 16 16 16 Rate Blood Pressure 143/65 (mmHg) O2 Sat by Pulse 97 Oximetry 08/31/17 08/31/17 08/31/17 21:46 22:01 23:35 Temperature 98.1 F 97.4 F Pulse Rate 139 82 Respiratory 16 16 13 Rate Blood Pressure 131/68 (mmHg) O2 Sat by Pulse 97 96 Oximetry 09/01/17 09/01/17 09/01/17 00:04 01:04 02:59 Temperature Pulse Rate Respiratory 18 16 16 Rate Blood Pressure (mmHg) O2 Sat by Pulse Oximetry 09/01/17 09/01/17 09/01/17 03:51 07:23 08:00 Temperature 98.3 F 98.0 F Pulse Rate 83 91 Respiratory 14 14 16 Rate Blood Pressure 133/67 133/59 (mmHg) O2 Sat by Pulse 99 96 Oximetry 09/01/17 09/01/17 08:52 09:52 Temperature Pulse Rate Respiratory 16 16 Rate Blood Pressure (mmHg) O2 Sat by Pulse Oximetry Oxygen Devices in Use Now: None Appearance: alert, no distress, frail Eyes: No Scleral Icterus, PERRLA Ears/Nose/Mouth/Throat: NL Teeth, Lips, Gums, Clear Oropharnyx Neck: NL Appearance and Movements; NL JVP, Trachea Midline Respiratory: Symmetrical Chest Expansion and Respiratory Effort, Clear to Auscultation Cardiovascular: NL Sounds; No Murmurs; No JVD, - - irregular rhythm Abdominal: NL Sounds; No Tenderness; No Distention, No Hepatosplenomegaly Lymphatic: No Cervical Adenopathy, No Axillary Adenopathy Extremities: - - RLE > LLE Skin: No Rash or Ulcers, No Nodules or Sclerosis Result Diagrams: 09/01/17 05:23 09/01/17 05:23 Assess/Plan/Problems-Billing Assessment: 1. Esophageal Erosions seen on endosocpy yesterday with Dr. Mattson. Pill-induced versus infectious? Will follow up biopsy/cultures continue IV protonix and carafate tolerating a pureed diet well will do a med rec today to switch pills to elixers and dc any caustic pills 2. CVA asa/statin on hold for now 3. Stage 2 and 3 sacral decubitus ulcers wound care following 4. full code
--- NOTE | 2017-09-01 17:46 | PN ---
Hospitalist Progress Note I had a long conversation with Ms. Varela today about her plan of care after she told her nurse that she wants to "give up." She is very upset about her diet, and I explained that her diet is temporary and that we still hope that there is potential for improvement. She is able to tell me clearly, though, that she would not want resuscitation or intubation, and that she would not want a feeding tube. A MOLST was filled out with her to reflect this. She would want to be hospitalized and have antibiotics if they were indicated, however. After her son returned, I explained our conversation to him, and he agreed that she should not be resuscitated or intubated should the need arise. I emphasized to him that she is able to make her own decisions, and that we will continue to listen to her wishes and respect them. He expresses understanding and agreement with this, but again says that he does not want her to "give up." Again, we discussed that Ms. Varela must decide for herself what medications and treatments she is willing to undergo. At this point, she agrees to taking the carafate in hopes that her esophagus will heal, but we will continue to address her wishes going forward.
[2017-09-01] MEDS ORDERED: Phenytoin IV(*) 50 MG/ML 2 ML VIAL (100 MG) ONE (20:32)
[2017-09-01] MEDS: Latanoprost 0.005%* 2.5 ml BTL BOTH EYES SCH (21:53)
[2017-09-02] MEDS: NS 0.9% 1000 ML* 1,000 ML IV SCH (03:07)
[2017-09-02] MEDS: Phenytoin IV(*) 100 MG in NS 0.9% 50 ML* 18 ML IVPB SCH (04:22)
[2017-09-02 06:31] LABS: BUN/Creatinine Ratio 11.5 (8-20); Calcium 7.6 mg/dL (8.6-10.3); EGFR African American 323.9 (>60); EGFR Non-African American 251.9 (>60); Magnesium 1.7 mg/dL (1.9-2.7); Potassium 3.2 mmol/L (3.5-5.0)
[2017-09-02] MEDS: Enoxaparin(*) 80 MG/0.8 ML SYR SUBCUT SCH (08:20)
[2017-09-02] MEDS: Pantoprazole IV* 40 MG IV SCH (08:21)
[2017-09-02] MEDS: Sucralfate TAB* 1 GM PO SCH (08:22)
[2017-09-02] MEDS: PHENobarbital SODIUM(*) 65 MG/ML VIAL IV SCH (08:22)
[2017-09-02] MEDS ORDERED: Magnesium Sulfate 2 GM IV* 2 GM/50 ML BAG IVPB ONE (10:40)
[2017-09-02] MEDS ORDERED: Potassium Chloride LIQUID* 20 MEQ PACKET PO SCH (11:00)
[2017-09-02 12:26] VITALS: BP 127/47
--- NOTE | 2017-09-02 14:31 | DS ---
DATE OF ADMISSION: 08/30/2017. DATE OF DISCHARGE: 09/02/2017. PRINCIPAL DIAGNOSES: 1. Esophageal erosions. 2. Gastric retention. SECONDARY DIAGNOSES: 1. Status post hiatal hernia repair. 2. Chris fundoplication in May of 2017. 3. CVA. 4. Seizure disorder. 5. Sacral decubitus ulcers. 6. Bilateral DVT's. 7. Hypokalemia. 8. Hypomagnesemia. HOSPITAL COURSE BY PROBLEM: 1. Gastric erosions: Ms. Varela has a complicated history that begins with a Chris fundoplication that occurred in May of 2017 after which she has had a complicated course. Most recently, she had been doing well at [facility] and had been eating a normal diet until three days prior to admission when she began experiencing regurgitation after eating all types of foods. She and her son explained that she was able to take food down and had no trouble swallowing , no dysphagia, no odynophagia, but about one minute after swallowing she would vomit all of the undigested food. This was not associated with any pain or other nausea and vomiting. Gastroenterology was consulted and performed an upper endoscopy which found undigested pills in the stomach, some of which were large enough to obstruct the pylorus, which may have been contributing to her vomiting after eating over the past several days and it also showed several esophageal erosions. After this endoscopy, her medications were all changed to elixirs and she was continued on IV Protonix and Carafate and she had marked improvement in her ability to tolerate p.o. She was started on pureed and was evaluated by speech and swallow who recommended a mechanical ground diet. She is being discharged with medications transitioned to elixirs and crushed medications. These have all been verified with pharmacy and a mechanical ground diet. She will need ongoing evaluation with speech and swallow. 2. Failure to thrive: She has been continuing to lose weight since her fundoplication in May; however, she is amenable to increasing her p.o. intake now that this issue is resolved and returning to [facility] to continue short- term rehab. 3. Hypokalemia and hypomagnesemia: These are likely related to poor p.o. intake and she required aggressive supplementation on this admission. These will need to be followed closely. 4. History of CVA: Please continue crushed aspirin 81 mg and a statin. 5. Recent diagnosis of bilateral DVT's: Continue Eliquis crushed. 6. Disposition and MOLST was updated on this admission with Ms. Varela. She was able to clearly explain to us that she would not want to be intubated or resuscitated. PHYSICAL EXAMINATION ON THE DAY OF DISCHARGE: General: Alert, frail, ill- appearing female. Vital Signs: Temperature 97.2, heart rate 94, respiratory rate 17, pulse ox 97 percent on room air, blood pressure 127/47. HEENT: Pupils equal, round and reactive to light. No nystagmus. Moist mucosa. Neck: No JVP. Thyroid nonpalpable. No cervical adenopathy. Chest: Regular rate and rhythm. No murmurs. PMI nondisplaced. Lungs: Clear bilaterally. Abdomen : Soft, nontender, nondistended. Extremities: 2+ lower extremity edema with the left lower extremity greater than the right lower extremity. Pulses 1+ bilaterally. Skin: Stage 2 to 3 sacral decubitus ulcers present without surrounding cellulitis. Neurologic: Oriented times three. Expressing appropriate decision making and clear judgment. TIME SPENT: Greater than 60 minutes were spent on this discharge, greater than half that time was spent [id number] with the patient and her son. [id number]/[facility] #: [id number] [facility]
== END 2017-09-02 16:00 | DRG 380 ==
LOC: MED 18:09
PROVIDERS: ADMIT Internal Medicine; ATTEND Internal Medicine
PROC: 0DC68ZZ Extirpation of Matter from Stomach, Via Natural or Artificial Opening Endoscopic (ICD-10-PCS; principal; 2017-08-31)
DX: K22.10 Ulcer of esophagus without bleeding (principal); L89.153 Pressure ulcer of sacral region, stage 3; L89.159 Pressure ulcer of sacral region, unspecified stage; L89.152 Pressure ulcer of sacral region, stage 2; G40.909 Epilepsy, unspecified, not intractable, without status epilepticus; E83.42 Hypomagnesemia; R62.7 Adult failure to thrive; M81.0 Age-related osteoporosis without current pathological fracture; K31.89 Other diseases of stomach and duodenum; E87.6 Hypokalemia; Z86.73 Personal history of transient ischemic attack (TIA), and cerebral infarction without residual deficits; Z88.8 Allergy status to other drugs, medicaments and biological substances; Z91.041 Radiographic dye allergy status; Z82.49 Family history of ischemic heart disease and other diseases of the circulatory system; Z82.3 Family history of stroke; Z86.718 Personal history of other venous thrombosis and embolism
CPT/HCPCS: 36415; 80048; 80053; 81003; 83735; 84100; 84134; 85025; 85610; 99156; 99157; A9270-GY; J1165; J1650; J2250; J2270; J2310; J2560; J3475